=== PATIENT | male | born 1980 | race Caucasian/White ===

== ENCOUNTER 2018-05-14 17:17 | Emergency (ER) | payer MEDICARE, MEDICAID, SELFPAY ==
[2018-05-14] VITALS (24 sets, daily range): BP systolic 103–127; BP diastolic 78–97; PULSE 97–117; RESP 8–32; TEMP 37.7–38.4; O2SAT 93–100
--- NOTE | 2018-05-14 17:35 | DI.REPORT_ITS ---
SYMPTOM/DIAGNOSIS: CHEST PAIN PA AND LATERAL CHEST: The heart is normal in size. The lungs are clear. The mediastinal structures and pleura appear intact. CONCLUSION: Normal chest. No evidence of acute cardiopulmonary disease.
--- NOTE | 2018-05-14 17:41 | ED.GENADUL ---
Disposition Clinical Impression: Fever, Malaise Disposition: AGAINST MEDICAL ADVICE Condition: Fair Instructions: Fever in Adults (ED), Bacteremia (ED) Additional Instructions: It Is clearly not my recommendation that you leave. I think it is very dangerous that you are leaving against our medical advice at this time. Please return immediately if you have any change in opinion, or you notice any worsening of your symptoms. Although this is not ideal medical therapy, please fill the prescription and take the antibiotic as directed. Drink 8-10 cups of water per day. Please also follow up with your primary care provider as soon as possible for reassessment and reevaluation. Prescriptions: Clindamycin [Cleocin] 450 mg PO TID 10 Days cap Referrals: Abhishek Rouse [Primary Care Provider] - Medical Decision Making - Medical Decision Making This is a pleasant 37-year-old male who presents for evaluation of fever, chills, chest pain, who has a history of IV drug use. He is febrile here on exam, and tachycardic. And concern for potential endocarditis, versus sepsis. Differential does include pneumonia, bacteremia, and urinary tract infection. We will rehydrate the patient, evaluate for cardiac and infectious etiologies. The patient was given vancomycin here in the emergency department. Chest x-ray was negative, patient remained mildly tachycardic, blood cultures were sent, unfortunately prior to the patient's completion of treatment and workup the patient decided to leave AGAINST MEDICAL ADVICE. He had a social issue at home stating that if he did not leave right now he would lose his apartment in place to stay. I pleaded with the patient to stay, however he insisted that he had to leave. It was made very clear that there was a fair chance that he would if he did not stay and receive proper treatment. I did give the patient a prescription for clindamycin in an effort to help remedy the poor decision of leaving AGAINST MEDICAL ADVICE, and potentially causing deleterious self-harm. Patient is of a appropriate age to make decisions. The patient is of sound mind, appears clinically sober, and has capacity to make decisions by my clinical exam. We have provided options for treatment and discussed the risks and benefits of these options and refusing these options, including and disability specific to the patient's pathology. Patient is able to discuss the risks and benefits and alternatives of treatment and refusing treatment. We have tried to involve the patient's family or support group that was present here or by contacting them on the phone. The patient chooses to leave before evaluation and treatment is complete AGAINST MEDICAL ADVICE. History of Present Illness - General Chief complaint: GenMedical Stated complaint: CALEX Time Seen by Provider: 05/14/18 17:34 - History of Present Illness Initial comments: This is a 37-year-old male with past medical history of IV drug use, cecal diverticulitis, who presents today for 5 days of sweating, fevers, chills, generalized malaise, and generalized body aches. Patient states that he went to his dentist today for toothache, and after telling him his symptoms they sent him here to the emergency department for evaluation of infection or the heart. The patient admits to mild chest pain, mild nausea, minimal epigastric pain. He denies any recent alcohol use but does state he weekly uses IV drug use. Patient denies any recent cocaine or heroin use,. He denies any previous cardiac history or family history of cardiac disease. He denies any vomiting, diarrhea, headache, vision change, cough, rash. He denies any recent surgeries. He denies any pertinent family history. - Related Data Acetaminophen [Tylenol Extra Strength] 1 tab PO PRN PRN 09/24/13 Pregabalin [Lyrica] 100 mg PO TID 08/09/15 Methadone HCl 70 mg PO DAILY 12/15/15 BuPROPion CR [Wellbutrin Sr] 150 mg PO DAILY 05/14/18 Clindamycin [Cleocin] 450 mg PO TID 10 Days cap 05/14/18 Allergies Allergy/AdvReac Type Severity Reaction Status Date / Time codeine Allergy Intermediate Hives Unverified 05/15/18 16:35 amoxicillin AdvReac Intermediate Nausea Unverified 05/15/18 16:35 Penicillins AdvReac Mild Nausea Unverified 05/15/18 16:35 Review of Systems Other: 10 point review of systems was performed, pertinent positives and negatives are noted in the history of present illness. Past Medical History - Past Medical History headaches, neuropathy, Hep C Surgical history: non-contributory General Exam - Other Other exam information: 1.Const: Well-nourished, Well-developed, appearing stated age 2.Eyes: PERRL, no conjunctival injection, and symmetrical lids. 3.ENT: Atraumatic external nose and ears. Moist MM. Neck: Symmetric, trachea midline, No thyromegaly. 4.CVS: Notable tachycardia +S1/S2, No appreciable murmurs or gallops. Peripheral pulses 2+ and equal in all extremities. Brisk capillary refill in all extremities. 5.RESP: Unlabored respiratory effort. Clear to auscultation bilaterally. No wheezes rales or rhonchi 6.GI: Soft, No hepatosplenomegaly. No guarding or rebound. Minimal epigastric tenderness. 7.MSK: Normocephalic/Atraumatic, Extremities w/o deformity or ttp No cyanosis or clubbing, Normal movement of all extremities. No Osler nodes or Janeway lesions. The patient does demonstrate multiple injection sites around his knees bilaterally. 8.Skin: Warm, Dry. No rashes or lesions. 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 Sensation grossly intact, no focal neurologic deficits. 10.Psych: (AAO) x3. Appropriate mood and affect
[2018-05-14] MEDS: Normal Saline 2,000 ML 1000 ML IV ×2 (17:50→19:36)
[2018-05-14] MEDS: LORazepam 2 MG/ML VIAL 1 MG IVP ×2 (17:56→18:10)
[2018-05-14] MEDS: Acetaminophen 500 MG TAB 1000 MG PO (17:57)
[2018-05-14] MEDS: VANCOMYCIN 1,500 MG in Normal Saline 500 ML 333.3333 MG IVPB (18:33)
[2018-05-14 18:51] LABS: BE (Venous) -1.2 mmol/L (-3-3); HCO3 (Venous) 24 mmol/L (22-28); O2 Sat (Venous) 99 % (70-80); TCO2 (Venous) 21 mmol/L (22-29); pCO2 (Venous) 41 mm/Hg (34-47); pH (Venous) 7.37 (7.32-7.43); pO2 (Venous) 125 mm/Hg (28-44)
[2018-05-14 18:53] LABS: Lactate 1.1 mmol/L (0.6-1.4)
[2018-05-14 18:54] LABS: Abs Immature Grans 0.04 k/cumm (0.0-0.09); Absolute Basophil Count 0.02 k/cumm (0.0-0.2); Absolute Eosinophil Count 0.07 k/cumm (0.0-0.7); Absolute Lymphocyte Count 1.99 k/cumm (1.2-3.4); Absolute Monocyte Count 0.93 k/cumm (0.11-0.7); Absolute Neutrophil Count 5.74 k/cumm (1.2-6.7); Basophils % 0.2; Eosinophils % 0.8; HCT 42.9 % (40.0-50.0); HGB 14.8 g/dL (13.5-17.5); Immature Grans % 0.5; Lymphocytes % 22.6; Mean Corp. HGB Concentration 34.5 g/dL (32.0-36.0); Mean Platelet Volume 9.9 fL (8.0-11.0); Monocytes % 10.6; Neutrophils % 65.3; Platelet Count 259 x1000/uL (130-400); RBC 5.11 m/cumm (4.50-6.00); RBC Distribution Width 13.6 % (11.8-14.1); White Blood Cell Count 8.79 k/cumm (4.4-10.8)
[2018-05-14 19:00] LABS: C-Reactive Protein 0.41 mg/dL (0.0-0.3)
[2018-05-14 19:00] LABS: Bilirubin Small (Negative); Blood Large (Negative); Glucose Negative (Negative); Ketones Trace mg/dL (Negative); Leukocyte Esterase Negative (Negative); Nitrite Negative (Negative); Specific Gravity >= 1.030 (1.005-1.025); Urobilinogen 0.2 EU/dL (Up TO 0.2); pH 5.5 (5-8)
[2018-05-14 19:01] LABS: Clarity Sl Cloudy
[2018-05-14 19:04] LABS: C & S Indicated? C&S Done As Ordered
[2018-05-14 19:11] LABS: ALT 30 U/L (12-78); AST 17 U/L (15-37); Albumin 3.9 g/dL (3.4-5.0); Alkaline Phosphatase 96 U/L (46-116); Anion Gap 9.9 mmol/L (3-11); BUN 18 mg/dL (7-18); Bilirubin, Total 0.5 mg/dL (0.2-1.0); CO2 24.1 mmol/L (21.0-32.0); CREATININE 1.32 mg/dL (0.70-1.30); Calcium 8.6 mg/dL (8.5-10.1); Chloride 104 mmol/L (98-107); Glucose 94 mg/dL (70-100); Lipase 58 U/L (73-393); Potassium 3.5 mmol/L (3.5-5.1); Sodium 138 mmol/L (136-145); TSH 2.45 uIU/mL (0.358-3.74); Total Protein 7.9 g/dL (6.4-8.2)
[2018-05-14 19:16] LABS: Troponin I < 0.02 ng/mL (0.00-0.06)
[2018-05-14 19:17] LABS: *AMPHETAMINES SCREEN URINE POSITIVE (Negative); *BARBITURATES SCREEN URINE Negative (Negative); *BENZODIAZEPINES SCREEN URINE Negative (Negative); Cannabinoids THC POSITIVE (Negative); Cocaine Screen,Urine POSITIVE (Negative); METHADONE URINE SCREEN POSITIVE (Negative); OPIATES URINE SCREEN POSITIVE (Negative)
[2018-05-14 19:18] LABS: Tricyclic Antidepressants Negative (Negative)
[2018-05-14 19:21] LABS: ETHANOL BLOOD < 3.0 mg/dL (<3)
[2018-05-14 19:22] LABS: Diff Comment Diff Reviewed; RBC Morphology Normal
[2018-05-14 19:23] LABS: Bacteria Negative HPF (Negative); Epithelial Cells Negative HPF (Negative); RBC >50 (0-2)
[2018-05-14 19:24] LABS: Crystals Many Calcium Oxalate HPF (Negative); Mucus Heavy (Negative)
[2018-05-14 19:25] LABS: Casts 20-50 Hyaline LPF (Negative)
[2018-05-14 19:27] LABS: ESR 9 MM/HR (0-15)
--- NOTE | 2018-05-14 20:40 | NUR.NOTE ---
Addendum entered by Scarlet Salas 05/14/18 21:12: Pt went into ER bathroom with belongings bag for approx. 10 min. Upon return to room demeanor was noted to be changed- pt was irritable, insistent on leaving, eyes were glossy and squinting. Dr. Richardson was made aware of this sudden change in pt affect and behavior. Original Note: Nursing Note: Pt states he received a phone call that he was kicked out of his house and would like to leave AMA. Pt states he understands that he could be having a life threatening illness and that he will not stay- i'll either get better or I wont, but I have to save my house. Pt did agree to go get a chest x-ray done as ordered but will not stay any longer after that. Pt removed bilat IV's himself and was found with blood all over floor in room. Pressure applied and dressings applied.
--- NOTE | 2018-05-14 21:08 | DI.VRAD_ITS ---
EXAM: XR Chest, 2 Views EXAM DATE/TIME: 05/14/2018 5:37 PM CLINICAL HISTORY: 37 years old, male; Pain and signs and symptoms; Other: Weakness; Chest pain; Type not specified TECHNIQUE: XR of the chest, 2 views. COMPARISON: CR - CHEST 2 VIEWS PA,LAT 2016-09-25 01:43 FINDINGS: Lungs: Mildly hyperaerated lungs consistent with deep inspiratory effort vs reactive airway disease vs mild COPD . Pleural space: Unremarkable. No pleural effusion. No pneumothorax. Heart/Mediastinum: Unremarkable. No cardiomegaly. Bones/joints: Unremarkable for patient's age. IMPRESSION: Mildly hyperaerated lungs consistent with deep inspiratory effort vs reactive airway disease vs mild COPD . Dictated and Authenticated by: Darwin Rosario MD. Ordering:ARGENTINA HORNE MD
== END 2018-05-14 20:50 | disposition left against medical advice (07) ==
PROVIDERS: Emergency Provider Student in an Organized Health Care Education/Training Program; PCP Family Medicine Adult Medicine
DX: R50.9 Fever, unspecified (principal); R53.81 Other malaise; F11.10 Opioid abuse, uncomplicated; Z53.29 Procedure and treatment not carried out because of patient's decision for other reasons
CPT/HCPCS: 71046; 93005; 96361; 96365; 96375; 99285 ×2; J2060; 36415; 80053; 80307; 82805; 83690; 85652; 87040; 87077; 80320; 81003; 81015; 83605; 84443; 84484; 85025; 86140; 87086; 87186; 93010

== ENCOUNTER 2018-05-15 16:22 | Inpatient (IN) | payer MEDICARE, MEDICAID, SELFPAY ==
[2018-05-15] VITALS (18 sets, daily range): BP systolic 125–145; BP diastolic 78–91; PULSE 77–110; RESP 10–26; TEMP 36.9–37.4; O2SAT 96–100
--- NOTE | 2018-05-15 16:50 | ED.GENADUL_ITS ---
Disposition Clinical Impression: Bacteremia, Chills, Cardiac murmur Disposition: [facility] Condition: Stable Medical Decision Making - Medical Decision Making This is a 37-year-old male with past medical history of IV drug abuse who presents after leaving AMA yesterday he presented here yesterday with fever, tachycardic, signs and symptoms concerning for bacteremia. He had no cardiac murmur at that time. He returns today, stating that he promises that he will stay. He continues to demonstrate tachycardia, but he is afebrile at this time. He has a same symptoms of sweats, chills, and general body aches. We will rehydrate, re-dose vancomycin, and admit. Concerning only on exam at this time the patient does have a mild grade 2 systolic murmur auscultated loudest over the left parasternal spaces. I am concerned for bacterial endocarditis and I think he would benefit from an echocardiogram. EKG 17: 7 Rate 103, CO 174, QTc 469, QRS 110, sinus tachycardia, RSR in V1, potential right bundle branch block, and anterior fascicular block. No significant ST elevation, less than 1 mm elevation in V2 but no other elevation. No reciprocal depression. Inverted T-wave in lead III, in V1. Laboratory workup does demonstrate slightly increased white count compared to before. Renal function normal, potassium stable. Cultures from yesterday have not returned at this point. Chest x-ray from yesterday was negative for any infection or pneumonia, urinalysis was negative for any infection, but certainly positive for multiple different drugs. With a new murmur, continued symptoms, I do feel that he needs further evaluation, echocardiogram, and continued IV antibiotics. Of note the patient's urine does look very dark, we will add a CPK as well as a urine myoglobin. I discussed the case with , he agrees with the assessment and plan. I have extensively reviewed the treatment plan with the patient. I have addressed all patient concerns at this time. I have also discussed the plan with the admitting physician and they agree with the current assessment and plan and have agreed to assume responsibility for the patient. All parties demonstrate verbal understanding and agreement with our assessment and plan at this time. Diagnosis bacteremia History of Present Illness - General Chief complaint: GenMedical Stated complaint: UNKNOWN Time Seen by Provider: 05/15/18 16:42 - History of Present Illness Initial comments: Old male with a past medical history of IV drug use, who presents today after leaving yesterday AGAINST MEDICAL ADVICE. Over the past few days he has had fevers, chills and has felt very off. He felt like his heart has been racing. He had some occasional chest pain. He was actually at his dentist office for sore tooth and they recommended he come in here to the ER for evaluation. Yesterday patient was seen as and was assessed and was febrile , notably tachycardic, lactate was not significantly elevated. Laboratory workup demonstrated signs concerning for infection. Chest x-ray was negative, urinalysis was positive for multiple drugs. Patient does readily admit to using drugs on a daily basis, primarily IV with injection sites in the knees. Yesterday the patient had no heart murmur that I could appreciate, and unfortunately became very anxious, and left AGAINST MEDICAL ADVICE. I spent a long time in the room with the patient trying to convince him to stay but was unsuccessful. Doing what was in the best interest of the patient I did give him a prescription for clindamycin and pleaded with him to start taking this if at all possible. He did receive a full dose of vancomycin here in the ED. He still left AGAINST MEDICAL ADVICE. He stated that there was multiple social reasons why he had to leave including potentially losing his apartment. He presents again today with the same symptoms, fever, chills, malaise and body aches. He remains tachycardic. He is currently afebrile today. He has no new complaints. He does admit to doing drugs today, as he does on a normal basis. He denies any pertinent surgeries, any pertinent family history. - Related Data Acetaminophen [Tylenol Extra Strength] 1 tab PO PRN PRN 09/24/13 Pregabalin [Lyrica] 100 mg PO TID 08/09/15 Methadone HCl 70 mg PO DAILY 12/15/15 BuPROPion CR [Wellbutrin Sr] 150 mg PO DAILY 05/14/18 Clindamycin [Cleocin] 450 mg PO TID 10 Days cap 05/14/18 Allergies Allergy/AdvReac Type Severity Reaction Status Date / Time codeine Allergy Intermediate Hives Unverified 05/15/18 16:35 amoxicillin AdvReac Intermediate Nausea Unverified 05/15/18 16:35 Penicillins AdvReac Mild Nausea Unverified 05/15/18 16:35 Review of Systems Other: 10 point review of systems was performed, pertinent positives and negatives are noted in the history of present illness. Past Medical History - Past Medical History headaches, neuropathy, Hep C Surgical history: non-contributory General Exam - Other Other exam information: 1.Const: Well-nourished, Well-developed, appearing stated age 2.Eyes: PERRL, no conjunctival injection, and symmetrical lids. 3.ENT: Atraumatic external nose and ears. Moist MM. Neck: Symmetric, trachea midline, No thyromegaly. 4.CVS: +S1/S2, a grade 2 systolic murmur is appreciable on my exam. This is new compared to before. It is heard loudest over the third left parasternal intercostal space.. Peripheral pulses 2+ and equal in all extremities. Brisk capillary refill in all extremities. 5.RESP: Unlabored respiratory effort. Clear to auscultation bilaterally. No wheezes rales or rhonchi 6.GI: Soft, Nontender/Nondistended, No hepatosplenomegaly. No guarding or rebound. 7.MSK: Normocephalic/Atraumatic, Extremities w/o deformity or ttp No cyanosis or clubbing, Normal movement of all extremities 8.Skin: Warm, Dry. There is a mild heat rash in the groin area. No other abnormalities. 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 Sensation grossly intact, no focal neurologic deficits. 10.Psych: (AAO) x3. Appropriate mood and affect Course Vital Signs - 24 hr 05/15/18 16:31 Temperature 37.4 C Pulse 110 H Respiratory 18 Rate Blood Pressure 131/84 Pulse Oximetry 96
[2018-05-15] MEDS: Normal Saline 1,000 ML 1000 ML IV (17:12)
[2018-05-15] MEDS: Acetaminophen 500 MG TAB 1000 MG PO (17:19)
[2018-05-15] MEDS: diphenhydrAMINE 50 MG/ML VIAL 25 MG IVP (17:20)
[2018-05-15] MEDS: Ketorolac 30 MG/ML VIAL IM (17:22)
[2018-05-15] MEDS: VANCOMYCIN 1,500 MG in Normal Saline 500 ML 333.3333 MG IVPB (17:24)
[2018-05-15 17:31] LABS: Abs Immature Grans 0.02 k/cumm (0.0-0.09); Absolute Basophil Count 0.03 k/cumm (0.0-0.2); Absolute Eosinophil Count 0.08 k/cumm (0.0-0.7); Absolute Lymphocyte Count 1.61 k/cumm (1.2-3.4); Absolute Monocyte Count 1.22 k/cumm (0.11-0.7); Absolute Neutrophil Count 8.22 k/cumm (1.2-6.7); Basophils % 0.3; Eosinophils % 0.7; HGB 14.1 g/dL (13.5-17.5); Immature Grans % 0.2; Lymphocytes % 14.4; Mean Corp. HGB Concentration 35.3 g/dL (32.0-36.0); Mean Corpuscular Hemoglobin 29.4 pg (27.0-33.0); Mean Corpuscular Volume 83.3 fL (80-95); Mean Platelet Volume 9.8 fL (8.0-11.0); Monocytes % 10.9; Neutrophils % 73.5; Platelet Count 255 x1000/uL (130-400); RBC Distribution Width 13.7 % (11.8-14.1); White Blood Cell Count 11.19 k/cumm (4.4-10.8)
[2018-05-15 17:34] LABS: ALT 26 U/L (12-78); AST 20 U/L (15-37); Albumin 3.8 g/dL (3.4-5.0); Alkaline Phosphatase 90 U/L (46-116); Anion Gap 12.5 mmol/L (3-11); BUN 17 mg/dL (7-18); Bilirubin, Total 1.1 mg/dL (0.2-1.0); CO2 23.5 mmol/L (21.0-32.0); CREATININE 1.08 mg/dL (0.70-1.30); Calcium 8.6 mg/dL (8.5-10.1); Chloride 106 mmol/L (98-107); Glucose 98 mg/dL (70-100); Lipase 47 U/L (73-393); Potassium 3.4 mmol/L (3.5-5.1); Sodium 142 mmol/L (136-145); TSH 1.87 uIU/mL (0.358-3.74); Total Protein 7.8 g/dL (6.4-8.2)
[2018-05-15 17:43] LABS: Troponin I < 0.02 ng/mL (0.00-0.06)
[2018-05-15 18:36] LABS: Bilirubin Small (Negative); Blood Large (Negative); Clarity Cloudy; Glucose Negative (Negative); Ketones Trace mg/dL (Negative); Leukocyte Esterase Negative (Negative); Nitrite Negative (Negative); Specific Gravity >= 1.030 (1.005-1.025); Urobilinogen 0.2 EU/dL (Up TO 0.2); pH 5.5 (5-8)
[2018-05-15 18:39] LABS: RBC >50 (0-2)
[2018-05-15 18:40] LABS: C & S Indicated? Yes; Mucus Moderate (Negative)
[2018-05-15 18:55] LABS: Creatine Kinase 167 U/L (39-308)
--- NOTE | 2018-05-15 21:15 | PDOC.CMPRO ---
Care Management Progress Note 05/15/18- Pt seen for bacteremia and Cardiac murmur by Dr. Mendez. Pt has been admitted to [facility] . Pt is seen by Dr. Abhishek Rouse at [facility] .
[2018-05-15] MEDS: Potassium Chloride 10 MEQ TABCR 20 MEQ PO (21:44)
--- NOTE | 2018-05-15 22:02 | PDOC.HP ---
Date of Service: 05/15/18 Time of Service: 22:02 Assessment/Plan - Assessment/Plan (1) Acute febrile illness Assessment: There is no obvious source for his fevers such as a dental abscess or sinusitis or bronchitis or UTI. Given his history of IV drug abuse and has to be presumed that he has bacteremia and probable subacute endocarditis Plan: Patient will need further blood cultures although given these had a couple dose of vancomycin may be unrevealing as his repeat blood cultures may come back no growth. Patient needs an echocardiogram. (2) Proteinuria Plan: It appears that historically the patient has passed protein in his urine in the past dating as far back as 2005. He reportedly has a history of chronic renal insufficiency. 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 I suspect that this is from a glomerular injury from his hepatitis C infection Plan: Would be helpful to get records from his PCP to see if he has been worked up for glomerulonephritis in the past. It appears historically dating back to 2005 he seems to pass small moderate to large amounts of blood on his urinalysis whenever this is been checked. He has had 2 instances in the past in which his urinalysis was negative for blood that was in November 2014 and February 2006. (4) History of intravenous drug abuse Assessment: Patient is currently enrolled in the methadone program through [facility]. However according to his urine drug screen from yesterday he still using polysubstances including opiates amphetamines cocaine and THC and cocaine. Plan: We will confirm with [facility] his methadone dose and represcribed this in the morning. However explained to the patient that he will not receive any other narcotic analgesics nor any benzodiazepines while hospitalized. He is requesting something to help him sleep and I offered melatonin or Benadryl or Vistaril and he declines all the above. He states he wants something stronger to help him sleep. I told him I will not be offering anything stronger. History of Present Illness - History of Present Illness Chief Complaint: Fevers, chills rule out endocarditis History of Present Illness: 37-year-old male with history of IV drug abuse currently in narcotic treatment program at [facility] in [facility] who presents to the ER at [facility] due to one week history of fevers, chills, insomnia and night sweats. Patient was seen in the ER yesterday by Dr. Fabrice Richardson, emergency dry room attendant, and had routine labs and blood cultures taken. Dr. Richardson treated him w/ iv vancomycin and implored the patient to stay however, the patient left the ER against medical advice due to reported social issues at home that he had to attend to. So far blood cultures from yesterday's ER visit have been negative. The patient returned to the ER today and Dr. Richardson saw him again and repeated some of his labs although did not repeat the blood cultures. Repeat labs included CMP, CBC, VBG, ESR, CRP, CK, UA, urine drug screen and blood alcohol level. His CBC which yesterday was normal now shows a leukocytosis of 11,000. CMP is fairly unremarkable except for mild hypokalemia 3.4 and a borderline elevated anion gap of 12.5 and elevated total bilirubin of 1.1. His troponin level is negative. Labs from yesterday showed elevated CRP of 0.41 but a normal ESR of 9. Urinalysis is remarkable for brown cloudy urine with 100 mg/dL protein trace of ketones and large amount of blood with greater than 50 red cells per high-powered field but negative for nitrites or leukocyte esterase. Yesterday's urinalysis also had many calcium oxalate crystals and 20-50 hyaline casts. No bacteria was seen in his urine. Chest x-ray from yesterday was read as a normal chest. He was treated in the emergency room with another dose of vancomycin 1500 mg. Patient is now admitted to the hospital for workup of possible subacute bacterial endocarditis. - Past Medical History CLINICAL AIDE: Migraine Gastrointestinal: Diverticulosis Hepatobiliary: Hep A/B/C (HCV (hepatitis C antibody reactive November 23, 2013 but HCV RNA quantitative by PCR was undetected as of December 31, 2013). HIV 1 and 2 rapid antibody was negative November 23, 2013) Psych: Addictions (History of opiate addiction currently on methadone treatment through outpatient drug addiction program at [facility]), Other (History of polysubstance abuse with drug overdose in 2013 and again in September 2016. Mood disorder not otherwise specified) Renal/: Chronic renal insuff Review of Systems - Review of Systems Constitutional: Fever, Sweats ENT: denies: Ear Pain, Nose Pain, Nose Discharge, Nose Congestion, Throat Pain Respiratory: denies: Cough, Shortness of Breath, SOB with Excertion Cardiovascular: denies: Chest Pain Gastrointestinal: Abdominal Pain (Mild epigastric discomfort). denies: Nausea, Vomiting Genitourinary: Other (Patient reports he is urinating dark brown to black urine) Musculoskeletal: denies: Arm Pain, Leg Pain Skin: denies: Rash, Other (Patient denies any open sores. He usually injects his cocaine into his legs) Neurological: Other (Insomnia) - Medications/Allergies Allergies/Adverse Reactions: Allergies Allergy/AdvReac Type Severity Reaction Status Date / Time codeine Allergy Intermediate Hives Unverified 05/15/18 16:35 amoxicillin AdvReac Intermediate Nausea Unverified 05/15/18 16:35 Penicillins AdvReac Mild Nausea Unverified 05/15/18 16:35 Medications: Current Medications Acetaminophen (Tylenol) 0 mg PO Q4H PRN PRN Al Hydrox/Mg Hydrox/Simethicone (Mylanta Liquid) 30 ml PO Q2H PRN PRN Bupropion HCl (Wellbutrin Sr) 150 mg PO DAILY YARY Dimethicone/Zinc Oxide (Stephen Protect Cream) 0 gm TP PRN PRN Docusate Sodium (Colace) 100 mg PO TID PRN PRN Vancomycin HCl 1,500 mg/ (Sodium Chloride) 250 mls @ 250 mls/hr IV Q12H YARY PRN Reason: Protocol Magnesium Hydroxide (Milk Of Magnesia) 30 ml PO DAILY PRN PRN Polyethylene Glycol (Miralax) 17 gm PO DAILY PRN PRN PRN Reason: Constipation Active Medications Generic Name Dose Route Start Last Admin Trade Name Freq PRN Reason Stop Dose Admin Acetaminophen 0 mg 05/15/18 19:33 Tylenol PO Q4H PRN PRN Al Hydrox/Mg Hydrox/Simethicone 30 ml 05/15/18 19:33 Mylanta Liquid PO Q2H PRN PRN Bupropion HCl 150 mg 05/16/18 08:30 Wellbutrin Sr PO DAILY YARY Dimethicone/Zinc Oxide 0 gm 05/15/18 19:33 Stephen Protect Cream TP PRN PRN Docusate Sodium 100 mg 05/15/18 19:33 Colace PO TID PRN PRN Vancomycin HCl 1,500 mg/ 250 mls @ 250 mls/hr 05/16/18 06:00 Sodium Chloride IV Q12H YARY Protocol Magnesium Hydroxide 30 ml 05/15/18 19:33 Milk Of Magnesia PO DAILY PRN PRN Polyethylene Glycol 17 gm 05/15/18 19:33 Miralax PO DAILY PRN PRN Constipation Acetaminophen [Tylenol Extra Strength] 1 tab PO PRN PRN 09/24/13 Pregabalin [Lyrica] 100 mg PO TID 08/09/15 Methadone HCl 70 mg PO DAILY 12/15/15 BuPROPion CR [Wellbutrin Sr] 150 mg PO DAILY 05/14/18 Clindamycin [Cleocin] 450 mg PO TID 10 Days cap 05/14/18 Objective - Exam Vitals and I&O: Vital Signs Temp 36.9 C 05/15/18 20:03 Pulse 106 H 05/15/18 20:03 Resp 18 05/15/18 20:03 BP 141/87 05/15/18 20:03 Pulse Ox 98 05/15/18 20:03 Intake & Output 05/14/18 05/15/18 05/15/18 23:59 11:59 23:59 Intake Total 1000 Balance 1000 Weight 88.451 kg Intake: IV 1000 General: Alert, Oriented x3, Other (Patient was confrontational about his drug abuse) HEENT: Atraumatic, PERRLA, EOMI, Mucous membr. moist/pink, Other (Teeth are in fair repair there is no swelling of his gingiva and no purulent drainage. No oropharyngeal exudate) Neck: Supple, +2 carotid pulse wo bruit. denies: JVD, Thyromegaly, LAD Lungs: Clear to auscultation, Normal air movement Cardiovascular: Regular rate, Normal S1, Normal S2. denies: Murmurs, Gallops, Rubs Abdomen: Normal bowel sounds, Soft. denies: Tenderness, Hepatospenomegaly, Masses Extremities: Normal pulses. denies: Cyanosis, Edema, Tenderness/swelling Skin: Significant lesion (Patient has a number healed pinpoint discolored bruises over his legs consistent with sites of previous injections. There is no open sores and no ulcerations of the skin. Examination of his nailbeds of his fingers and toes reveals no splinter hemorrhages. He has no Osler nodes of his hands) Neurological: Normal gait, Normal speech, Strength at 5/5 X4 ext, Normal tone, Sensation intact Psych/Mental Status: Mental status NL, Mood NL Results - Laboratory Data Result Diagrams: 05/15/18 16:58 05/15/18 16:58 Laboratory Results: Laboratory Tests 05/15/18 05/15/18 05/15/18 16:58 16:58 16:58 WBC 11.19 H RBC 4.80 Hgb 14.1 Hct 40.0 MCV 83.3 MCH 29.4 MCHC 35.3 RDW 13.7 Plt Count 255 MPV 9.8 Immature Gran % 0.2 Neutrophils % 73.5 Lymphocytes % 14.4 Monocytes % 10.9 Eosinophils % 0.7 Basophils % 0.3 Absolute Neutrophils 8.22 H Absolute Lymphocytes 1.61 Absolute Monocytes 1.22 H Absolute Eosinophils 0.08 Absolute Basophils 0.03 Sodium 142 Potassium 3.4 L Chloride 106 Carbon Dioxide 23.5 Anion Gap 12.5 H BUN 17 Creatinine 1.08 Estimated GFR/1.73 m2 >= 60.00 Glucose 98 Calcium 8.6 Total Bilirubin 1.1 H AST 20 ALT 26 Alkaline Phosphatase 90 Creatine Kinase 167 Troponin I < 0.02 Total Protein 7.8 Albumin 3.8 Lipase 47 L TSH 1.87 Urine Color Urine Clarity Urine pH Ur Specific [place] Urine Protein Urine Ketones Urine Blood Urine Nitrite Urine Bilirubin Urine Urobilinogen Ur Leukocyte Esterase Urine RBC Urine WBC Ur Epithelial Cells Urine Crystals Urine Bacteria Urine Mucus Ur Culture Indicated? Urine Glucose 05/15/18 18:20 WBC RBC Hgb Hct MCV MCH MCHC RDW Plt Count MPV Immature Gran % Neutrophils % Lymphocytes % Monocytes % Eosinophils % Basophils % Absolute Neutrophils Absolute Lymphocytes Absolute Monocytes Absolute Eosinophils Absolute Basophils Sodium Potassium Chloride Carbon Dioxide Anion Gap BUN Creatinine Estimated GFR/1.73 m2 Glucose Calcium Total Bilirubin AST ALT Alkaline Phosphatase Creatine Kinase Troponin I Total Protein Albumin Lipase TSH Urine Color Brown Urine Clarity Cloudy Urine pH 5.5 Ur Specific [place] >= 1.030 H Urine Protein 100 H Urine Ketones Trace H Urine Blood Large H Urine Nitrite Negative Urine Bilirubin Small H Urine Urobilinogen 0.2 Ur Leukocyte Esterase Negative Urine RBC >50 H Urine WBC Not Applicable Ur Epithelial Cells Not Applicable Urine Crystals Not Applicable Urine Bacteria Not Applicable Urine Mucus Moderate Ur Culture Indicated? Yes Urine Glucose Negative
[2018-05-15] MEDS: Acetaminophen 325 MG TAB PO (23:50)
[2018-05-15] MEDS: diphenhydrAMINE 25 MG CAP 50 MG PO (23:51)
[2018-05-16] MEDS: Normal Saline Flush 10 ML SYR ×2 (06:03→08:23)
[2018-05-16] MEDS: VANCOMYCIN 1,500 MG in Normal Saline 250 ML 250 MG IV (06:03)
[2018-05-16 07:19] LABS: Abs Immature Grans 0.01 k/cumm (0.0-0.09); Absolute Basophil Count 0.04 k/cumm (0.0-0.2); Absolute Eosinophil Count 0.21 k/cumm (0.0-0.7); Absolute Lymphocyte Count 1.29 k/cumm (1.2-3.4); Absolute Monocyte Count 0.89 k/cumm (0.11-0.7); Absolute Neutrophil Count 3.21 k/cumm (1.2-6.7); Basophils % 0.7; Eosinophils % 3.7; HCT 38.1 % (40.0-50.0); Immature Grans % 0.2; Lymphocytes % 22.8; Mean Corp. HGB Concentration 34.1 g/dL (32.0-36.0); Mean Platelet Volume 9.5 fL (8.0-11.0); Monocytes % 15.8; Neutrophils % 56.8; Platelet Count 211 x1000/uL (130-400); RBC 4.48 m/cumm (4.50-6.00); RBC Distribution Width 13.4 % (11.8-14.1); White Blood Cell Count 5.65 k/cumm (4.4-10.8)
--- NOTE | 2018-05-16 07:30 | MERGE_ITS ---
*[facility]* *[facility]* [address] [place] [address] Date of study: 05/16/2018 Transthoracic Echocardiography M-mode, complete 2D, complete spectral Doppler, and color Doppler *STUDY CONCLUSIONS* Impressions: No evidence of endocarditis, however, sensitivity for this finding on TTE is <50%. Summary: 1. Left ventricle: The cavity size was normal. Wall thickness was normal. Systolic function was normal. The estimated ejection fraction was 55-60%. Wall motion was normal; there were no regional wall motion abnormalities. 2. Mitral valve: There was mild regurgitation. 3. Right ventricle: The cavity size was normal. Wall thickness was normal. Systolic function was normal. *PATIENT PRESENTATION* Height: 177.8cm ((70in) ) S/D Pressure: 145 / 91 Weight: 192kg ((422.4lb) ) BSA: 3.2m^2 PERFORMING Unknown PERFORMING [facility] ORDERING Xavi Winn REFERRING Xavi Winn TUTOR COORDINATOR Sharita Strickland *PROCEDURE DATA* Procedure information: This study was interpreted by [facility]. Pertinent images and digital data are archived for permanent storage and are available for subsequent review. No prior study was available for comparison. Study status: Routine. Transthoracic echocardiography. M-mode, complete 2D, complete spectral Doppler, and color Doppler. A Transthoracic Echocardiogram was performed. Scanning was performed from the parasternal, apical, subcostal, and suprasternal notch acoustic windows. Images were obtained using an [employer] 2000 cardiac ultrasound machine. Image quality was fair. Study completion: The patient tolerated the procedure well. History: PMH: Acute febrile illness, history of iv drug abuse. *CARDIAC ANATOMY* Left ventricle: The cavity size was normal. Wall thickness was normal. Systolic function was normal. The estimated ejection fraction was 55-60%. Wall motion was normal; there were no regional wall motion abnormalities. Diastolic parameters were normal. Aortic valve: Trileaflet; normal thickness leaflets. Mobility was not restricted. Doppler: Transvalvular velocity was within the normal range. There was no stenosis. There was no significant regurgitation. VTI ratio of LVOT to aortic valve: 0.85. Valve area (VTI): 2.7cm^2. Indexed valve area (VTI): 0.8cm^2/m^2. Peak velocity ratio of LVOT to aortic valve: 0.8. Valve area (Vmax): 2.5cm^2. Indexed valve area (Vmax): 0.8cm^2/m^2. Mean velocity ratio of LVOT to aortic valve: 0.71. Valve area (Vmean): 2.2cm^2. Indexed valve area (Vmean): 0.7cm^2/m^2. Mean gradient (S): 3.4mm Hg. Peak gradient (S): 5.7mm Hg. Aorta: Aortic root: The aortic root was normal in size. Mitral valve: Structurally normal valve. Mobility was not restricted. Doppler: Transvalvular velocity was within the normal range. There was no evidence for stenosis. There was mild regurgitation. Valve area by pressure half-time: 3.5cm^2. Indexed valve area by pressure half-time: 1.1cm^2/m^2. Peak gradient (D): 2.3mm Hg. Left atrium: The atrium was at the upper limits of normal in size. Right ventricle: The cavity size was normal. Wall thickness was normal. Systolic function was normal. Pulmonic valve: Poorly visualized. Doppler: Transvalvular velocity was within the normal range. There was no evidence for stenosis. There was mild regurgitation. Tricuspid valve: Structurally normal valve. Doppler: Transvalvular velocity was within the normal range. There was no evidence for stenosis. There was trivial regurgitation. Pulmonary artery: Poorly visualized. Pulmonary systolic pressure was within the normal range. Right atrium: The atrium was normal in size. Pericardium: There was no pericardial effusion. Systemic veins: Inferior vena cava: The vessel was normal in size. The respirophasic diameter changes were in the normal range (greater than or equal to 50%), consistent with normal central venous pressure. Measurements Left ventricle Value Reference LV ID, ED, PLAX 5.0 cm 3.5 - 6.0 LV ID, ES, PLAX 3.4 cm 2.1 - 4.0 LV PW thickness, ED, PLAX 0.9 cm LV end-diastolic volume, 1-p A2C 102 ml LV ejection fraction, 1-p A2C 58 % LV end-diastolic volume, 1-p A4C 109 ml LV ejection fraction, 1-p A4C 60 % LV e', lateral 0.124 m/sec LV E/e', lateral 6 LV e', medial 0.085 m/sec LV E/e', medial 9 LV e', average 0.104 m/sec LV E/e', average 7 Ventricular septum Value Reference IVS thickness, ED, PLAX 0.8 cm LVOT Value Reference LVOT ID, A-P 2.0 cm LVOT area 3.2 cm^2 LVOT peak velocity, S 0.95 m/sec LVOT mean velocity, S 0.62 m/sec LVOT VTI, S 23.7 cm LVOT peak gradient, S 3.6 mm Hg LVOT mean gradient, S 1.8 mm Hg Stroke volume (SV), LVOT DP 75 ml Stroke index (SV/bsa), LVOT DP 23 ml/m^2 Aortic valve Value Reference Aortic valve peak velocity, S 1.2 m/sec Aortic valve mean velocity, S 0.88 m/sec Aortic valve VTI, S 27.8 cm Aortic mean gradient, S 3.4 mm Hg Aortic peak gradient, S 5.7 mm Hg VTI ratio, LVOT/AV 0.85 Aortic valve area, VTI 2.7 cm^2 Velocity ratio, peak, LVOT/AV 0.8 Aortic valve area, peak velocity 2.5 cm^2 Velocity ratio, mean, LVOT/AV 0.71 Aortic valve area, mean velocity 2.2 cm^2 Aortic valve area/bsa, mean velocity 0.7 cm^2/m^2 Aorta Value Reference Aortic root ID, ED 3.1 cm Ascending aorta ID, A-P, S 2.8 cm Aortic root ID, ED, MM 3.1 cm 2.0 - 3.7 Left atrium Value Reference LA ID, A-P, ES 3.8 cm LA ID/bsa, A-P 1.2 cm/m^2 <=2.2 LA area, ES, A4C 22.1 cm^2 8.8 - 23.4 LA area, ES, A2C 22 cm^2 LA volume/bsa, S 25 ml/m^2 LA volume, ES, 2-p 67 ml LA volume/bsa, ES, 2-p 21 ml/m^2 LA/aortic root ratio 1.23 Mitral valve Value Reference Mitral E-wave peak velocity 0.75 m/sec Mitral A-wave peak velocity 0.57 m/sec Mitral deceleration time 220 ms 150 - 230 Mitral pressure half-time 64 ms Mitral peak gradient, D 2.3 mm Hg Mitral E/A ratio, peak 1.32 Mitral valve area, PHT, DP 3.5 cm^2 Tricuspid valve Value Reference Tricuspid regurg peak velocity 2.4 m/sec Tricuspid peak RV-RA gradient 23 mm Hg Right atrium Value Reference RA area, ES, A4C 18.6 cm^2 8.3 - 19.5 RA volume, ES, A/L 54 ml RA volume/bsa, ES, A/L 17 ml/m^2 Legend: (L) and (H) danie values outside specified reference range. I have personally reviewed the images and have reviewed and edited the reported findings. Electronically signed by Janae Garcia 05/16/2018 11:18
[2018-05-16 07:47] LABS: Anion Gap 8.1 mmol/L (3-11); BUN 13 mg/dL (7-18); CO2 24.9 mmol/L (21.0-32.0); CREATININE 0.93 mg/dL (0.70-1.30); Chloride 108 mmol/L (98-107); Glucose 107 mg/dL (70-100); Magnesium 2.1 mg/dL (1.8-2.4); Sodium 141 mmol/L (136-145)
[2018-05-16 07:57] LABS: C-Reactive Protein 5.68 mg/dL (0.0-0.3)
--- NOTE | 2018-05-16 08:06 | NUR.NOTE ---
Nursing Note: 0806: called [facility] to confirm pt's dosing of methadone. per TASHA Henry, pt takes 70mg PO methadone daily. last dose was 05/15/18.
[2018-05-16 08:22] LABS: ESR 13 MM/HR (0-15)
[2018-05-16] MEDS: buPROPion-CR 150 MG TABCR PO (08:23)
[2018-05-16 09:15] VITALS: BP 100/65; PULSE 65; RESP 18; TEMP 36.1; O2SAT 96
--- NOTE | 2018-05-16 09:44 | NUR.NOTE ---
Nursing Note: 0944: called [facility] pharmacy to verify pt's Lyrica dosing. Trae in pharmacy verifies that pt picked up a 30 day dose on 05/01/18 and is prescribed 100mg BID.
[2018-05-16] MEDS: Methadone Liquid 10 MG/ML 70 MG PO (09:57)
--- NOTE | 2018-05-16 11:22 | PHARADMIT ---
Addendum entered by Maritza Pizano 05/20/18 14:12: Pharmacy Note Subjective CIRA scheduled for tomorrow Objective BP-96/61 other VS okay labs okay Assessment waiting for results of CIRA to determine length of antibiotic treatment Plan vanco trough scheduled for tomorrow @ 0500, adjust dose if necessary Original Note: Addendum entered by Maritza Pizano 05/19/18 14:40: Pharmacy Note Subjective plan was to do a CIRA today per morning report Objective VS-okay labs okay SCr-0.80 Assessment vanco trough came back high at 20.7, adjusted dose to 1000 mg Q10H to target a trough of 11.4 since previous troughs came back over 5 points higher than predicted Plan order vanco trough if vanco continues Original Note: Addendum entered by Christiano Reza III 05/18/18 10:35: Pharmacy Note Subjective MD waiting for culture results to better manage IV ABX treatment. Objective VS-OK Labs ok SCr- 1.02 Plts- 288 No BM yet (no BM meds given, nurse notified. Assessment Vancomycin continues. Next trough ordered for 05/19 @0900 Lovenox 40mg started yesterday Plan Watch for Vanco trough, clture resuls, and cardiology consult Original Note: Addendum entered by Christiano Reza III 05/17/18 15:01: Pharmacy Note Subjective Endocarditis has not been ruled out and MD will proceed to treat. Vancomycin trough came back high (25.5) dose adjustment by [facility] consult ordered Objective VS-OK Na-142 K+4.1 WBC-4.38 SCr0.87 H&H,Plts-OK No BM yet Assessment Vancomcyin chanaged to 1250mg IV q8hr with next dose beginning 05/17/18 @ 1800. Plan If cultures come back Ramila LONGORIA wants to treat for 6 weeks. Original Note: Admission Pharmacy Clinical Review ACUTE FEBRILE ILLNESS, R/O ENDOCARDITIS Code Status Full Code Current Weight Wgt- 87.5 kg Renally Cleared and Narrow Therapeutic Index Meds CrCl~ 113 mL/min Meds-OK QTc Value / Action Taken QTc-469 Na BP Control, Fever BP- 100/65 Tmax- 37.0C Electrolytes reviewed Na- 141 K+4.0 Mag-2.1 DVT Prophylaxis No Opiate Usage / Scheduled Bowel Regimen Ordered Yes Yes Plt/SCr for Heparin / Enoxaparin Plts- 211 SCr-0.93 INR for Warfarin na H/H stable, WBC/Bands H&H- 13.0/38.1 WBC- 5.65 Antibiotic appropriateness Vancomycin Cultures and Sensitivities Blood-Urine- Pending Surgical ABX d/c within 24 hr na DM control / Insulin Dosing BG-107 Heart Failure (Check EF%) (YUNG's, B-Block, Diuretics) none IV to PO Switch No Home Meds Reviewed Yes Home Meds Not Ordered Lyrica, Clindamycin Comments On Methadone Liquid
[2018-05-16] MEDS: Acetaminophen 325 MG TAB PO (12:05)
[2018-05-16] MEDS: Mylanta Suspension 30 ML CUP PO (12:10)
--- NOTE | 2018-05-16 14:32 | PDOC.CMPRO ---
Date of Service: 05/16/18 Time of Service: 14:32 Care Management Progress Note S/O: Pt presented at interdisciplinary rounds. Willy is lying in his bed on the MS floor when CM visited this morning. He is engaged in conversation and makes good eye contact. He has a very flat affect however is talkative. He is awaiting his medication administration and reports that he is feeling ok at present but knows that if he doesn't get his methadone soon that he will feel awful. He continues to receive IV antibiotics. Willy reported that he will need transportation upon discharge and has used [facility] in the past. CM will arrange transport at time of discharge. A: Willy is a 37 year old male admitted with acute febrile illness related to endocarditis. P: Willy will be discharged home when medically ready per MD. He will transport via [facility] and follow up with his primary care provider. CM will continue to provide support to patient and careteam regarding discharge planning and disposition.
[2018-05-16] MEDS: VANCOMYCIN 1,500 MG in Normal Saline 250 ML 166.667 MG IV ×2 (14:56→21:58)
[2018-05-16] MEDS: Normal Saline Flush 10 ML SYR IVP ×2 (14:57→22:00)
[2018-05-16 15:55] VITALS: BP 110/72; PULSE 64; RESP 18; TEMP 35.8; O2SAT 97
--- NOTE | 2018-05-16 17:12 | PGE_ITS ---
DATE OF SERVICE: May 16, 2018 ASSESSMENT/PLAN: 1) Acute febrile illness. Evidence of fevers for approximately 1 week with a his tory of IV drug abuse, with obvious concern for potential infective endocarditis. The patient also has bacteremia with gram positive cocci. Echocardiogram obtained, and on a transthoracic echo, there is no evidence of endocarditis, however sensitivity for this finding on transthoracic echo is noted to be rather low. Left ventricular ejection fraction is normal, with a mitral valve that showed mild regurgitation only. 2) Continue Vancomycin and continue monitoring blood cultures for speciation and sensitivities. When ultimate antibiotic selection is made, will discuss with ID over length of time of treatment, whethe r the patient should be treated for a prolonged period for presumed infective endocarditis. 3) HCV. Noted history of Hepatitis C. 4) History of IV drug abuse. Currently under Methadone program through [facility]. Continue home Methado ne, dose confirmed. However, unfortunately urine drug screen from the day prior to admission also s hows evidence of amphetamines, cocaine and Tetrahydrocannabinol as well as his Methadone. The patie nt also has opiates on his urine drug screen. 5) Will continue his Methadone as previously stated and monitor symptomatically. 6) Prophylaxis. Lovenox subcutaneous for deep vein thrombosis prophylaxis. SUBJECTIVE: 37-year-old male with a past medical history significant for IV drug abuse, currently o n a narcotic program at [facility] in [facility], admitted from [facility] Emergency Department on 05/15/2018 with a 1-week history of fevers and chills with evidence of bacterem ia from blood cultures from the of this month. The patient was initially seen in the Emergency Department on May 14, and due to the high suspici on for potential infectious endocarditis, recommendations were made for him to stay. However, the mookie wilmer left the Emergency Room against medical advice with reported social issues at home that he had to attend to. He then returned to the Emergency Room on the day of admission and was seen again an d, at that time, agreed to hospitalization. By that point, his blood cultures from the day prior we re positive for gram positive cocci. The patient was referred for admission for further evaluation and treatment. This morning, Mr. Watson reports feeling improved overall. He has remained afebrile while hospitali zed. No overnight events were reported. PHYSICAL EXAMINATION: In general, the patient appears comfortable, lying in bed, no acute distress noted. General - vital signs - temperature 36.1 and afebrile, blood pressure 100/65, heart rate 65, pulse ox imetry 96% on room air. Neck - supple. Cardiovascular - regular, nontachycardic. No significant murmur on prolonged cardiac auscultation. Pulmonary - clear to auscultation bilaterally without crackles, rhonchi or wheezing. Abdomen - bowel sounds appreciated, soft, nontender, nondistended. Vascular - no lower extremity edema noted. LABORATORY DATA: Basic metabolic panel essentially normal with the exception of mildly elevated chl oride of 108 and a mildly elevated glucose of 107. Initial liver function tests were checked and normal. C-reactive protein markedly elevated at 5.68. TSH was checked and normal. CBC with normalization of white blood count on antibiotic therapy, HGB of 13, platelet count is miracle l. Urinalysis with 100+ protein, trace ketones, large blood, negative for nitrites and leukocyte esteras e. Greater than 50 red blood cells noted. Blood cultures from 05/14/2018 showing growth of gram positive cocci in two sets of bottles, but no maureen wth in a 3rd set. STUDIES: CXR dated 05/14/2018 on initial Emergency Department visit with no evidence of acute cardiop ulmonary disease.
[2018-05-16] MEDS: Normal Saline 500 ML 30 ML IV (20:00)
[2018-05-16] MEDS: Pregabalin 100 MG CAP PO (21:11)
[2018-05-17 00:04] VITALS: BP 124/79; PULSE 71; RESP 18; TEMP 36.4; O2SAT 98
[2018-05-17] MEDS: VANCOMYCIN 1,500 MG in Normal Saline 250 ML 166.667 MG IV (06:44)
[2018-05-17 07:10] LABS: Abs Immature Grans 0.01 k/cumm (0.0-0.09); Absolute Basophil Count 0.03 k/cumm (0.0-0.2); Absolute Eosinophil Count 0.33 k/cumm (0.0-0.7); Absolute Lymphocyte Count 1.63 k/cumm (1.2-3.4); Absolute Monocyte Count 0.63 k/cumm (0.11-0.7); Absolute Neutrophil Count 1.75 k/cumm (1.2-6.7); Basophils % 0.7; Eosinophils % 7.5; HCT 39.6 % (40.0-50.0); HGB 13.6 g/dL (13.5-17.5); Immature Grans % 0.2; Lymphocytes % 37.2; Mean Corp. HGB Concentration 34.3 g/dL (32.0-36.0); Mean Corpuscular Hemoglobin 29.2 pg (27.0-33.0); Mean Platelet Volume 9.9 fL (8.0-11.0); Monocytes % 14.4; Platelet Count 235 x1000/uL (130-400); RBC 4.66 m/cumm (4.50-6.00); RBC Distribution Width 13.5 % (11.8-14.1); White Blood Cell Count 4.38 k/cumm (4.4-10.8)
[2018-05-17 07:25] LABS: ALT 22 U/L (12-78); AST 14 U/L (15-37); Albumin 3.1 g/dL (3.4-5.0); Alkaline Phosphatase 78 U/L (46-116); BUN 12 mg/dL (7-18); Bilirubin, Total 0.4 mg/dL (0.2-1.0); CREATININE 0.87 mg/dL (0.70-1.30); Calcium 8.5 mg/dL (8.5-10.1); Chloride 106 mmol/L (98-107); Glucose 108 mg/dL (70-100); Potassium 4.1 mmol/L (3.5-5.1); Sodium 142 mmol/L (136-145); Total Protein 6.8 g/dL (6.4-8.2)
[2018-05-17 07:45] VITALS: BP 122/76; PULSE 75; RESP 18; TEMP 36.3; O2SAT 98
[2018-05-17] MEDS: buPROPion-CR 150 MG TABCR PO (08:48)
[2018-05-17] MEDS: Methadone Liquid 10 MG/ML 70 MG PO (08:48)
[2018-05-17] MEDS: Pregabalin 100 MG CAP PO ×2 (08:48→22:11)
[2018-05-17] MEDS: Enoxaparin 40 MG/0.4 ML SYR SC (08:50)
[2018-05-17] MEDS: Mylanta Suspension 30 ML CUP PO (09:01)
[2018-05-17] MEDS: Acetaminophen 325 MG TAB PO (09:02)
[2018-05-17 13:45] LABS: Vancomycin, Trough 25.5 ug/mL (10.0-20.0)
[2018-05-17 15:37] LABS: Myoglobin, U 27 mcg/L (<=21)
[2018-05-17] MEDS: Normal Saline 500 ML 30 ML IV (18:09)
[2018-05-17] MEDS: VANCOMYCIN 1,250 MG in Normal Saline 250 ML 166.667 MG IVPB (18:10)
[2018-05-17 19:16] VITALS: BP 124/77; PULSE 58; RESP 19; TEMP 36.6; O2SAT 97
[2018-05-18] MEDS: VANCOMYCIN 1,250 MG in Normal Saline 250 ML 166.667 MG IVPB ×3 (01:58→18:11)
[2018-05-18 02:45] VITALS: BP 93/54; PULSE 58; RESP 18; TEMP 36.4; O2SAT 98
[2018-05-18 07:37] LABS: Abs Immature Grans 0.02 k/cumm (0.0-0.09); Absolute Basophil Count 0.05 k/cumm (0.0-0.2); Absolute Eosinophil Count 0.37 k/cumm (0.0-0.7); Absolute Lymphocyte Count 1.66 k/cumm (1.2-3.4); Absolute Monocyte Count 0.55 k/cumm (0.11-0.7); Absolute Neutrophil Count 2.65 k/cumm (1.2-6.7); Basophils % 0.9; Immature Grans % 0.4; Lymphocytes % 31.3; Mean Corp. HGB Concentration 34.1 g/dL (32.0-36.0); Mean Corpuscular Hemoglobin 28.9 pg (27.0-33.0); Mean Corpuscular Volume 84.7 fL (80-95); Mean Platelet Volume 9.7 fL (8.0-11.0); Monocytes % 10.4; Platelet Count 288 x1000/uL (130-400); RBC 4.84 m/cumm (4.50-6.00); RBC Distribution Width 13.4 % (11.8-14.1)
[2018-05-18 07:47] VITALS: BP 111/73; PULSE 80; RESP 18; TEMP 36.4; O2SAT 97
[2018-05-18 07:47] LABS: ALT 26 U/L (12-78); AST 16 U/L (15-37); Albumin 3.2 g/dL (3.4-5.0); Alkaline Phosphatase 85 U/L (46-116); Anion Gap 6.7 mmol/L (3-11); BUN 17 mg/dL (7-18); Bilirubin, Total 0.3 mg/dL (0.2-1.0); CO2 29.3 mmol/L (21.0-32.0); CREATININE 1.02 mg/dL (0.70-1.30); Calcium 8.8 mg/dL (8.5-10.1); Chloride 104 mmol/L (98-107); Glucose 103 mg/dL (70-100); Potassium 3.8 mmol/L (3.5-5.1); Sodium 140 mmol/L (136-145); Total Protein 7.2 g/dL (6.4-8.2)
[2018-05-18] MEDS: Pregabalin 100 MG CAP PO ×2 (09:25→20:51)
[2018-05-18] MEDS: Acetaminophen 325 MG TAB PO ×3 (09:25→20:49)
[2018-05-18] MEDS: Methadone Liquid 10 MG/ML 70 MG PO (09:25)
[2018-05-18] MEDS: buPROPion-CR 150 MG TABCR PO (09:25)
[2018-05-18] MEDS: Enoxaparin 40 MG/0.4 ML SYR SC (09:25)
--- NOTE | 2018-05-18 10:08 | PDOC.CMPRO ---
Date of Service: 05/18/18 Time of Service: 10:08 Care Management Progress Note S/O: Pt presented at interdisciplinary rounds. Willy is lying in his bed on the MS floor when CM visited this morning. He is engaged in conversation and makes good eye contact. He has a very flat affect however is talkative. Plan of care to continue IV ABX. Willy reported that he will need transportation upon discharge and has used [facility] in the past. CM will arrange transport at time of discharge. A: Willy is a 37 year old male admitted with acute febrile illness related to endocarditis. P: Willy will be discharged home when medically ready per MD. He will transport via [facility] and follow up with his primary care provider. CM will continue to provide support to patient and careteam regarding discharge planning and disposition.
--- NOTE | 2018-05-18 12:38 | PGE_ITS ---
PROGRESS NOTE DATE OF SERVICE May 17, 2018 at 3:44 p.m. ASSESSMENT AND PLAN 1. Acute febrile illness. Evidence of fevers for approximately one week with evidence of bacteremi a by prior blood cultures in patient with active ongoing IVDA. Obvious concern for potential infecti ve endocarditis. Transthoracic Echocardiogram did not reveal any evidence of vegetation. Currently aw aiting speciation of blood cultures prior to discussion with ID for determination of need for CIRA and length of course of antibiotic therapy. Continue vancomycin, and continue to monitor blood cultures. 2. HCV. Noted history of hepatitis C. 3. History of IV drug abuse. Currently under Methadone program through [facility]. Continue home Methado ne, dose verified by pharmacy. Urine drug screen positive for polysubstances that include amphetamine s, cocaine, THC, opiates, as well as his home his Methadone. 4. Prophylaxis. Subcutaneous Lovenox. SUBJECTIVE A 37-year-old male with a past medical history significant for IV drug abuse, currently on a narcotic program at [facility] in [facility], admitted from [facility] Emergency [facility] on 05/15/2018 with a 1-week history of fevers and chills with evidence of bacteremia from bloo d cultures from the of this month. The patient was initially seen in the Emergency Department on May 14, and due to a high suspicion for potential infectious endocarditis, recommendations were made for him to stay. However, the jaqui ent left against medical advice from the Emergency Department, with reported social issues at home t hat he had to attend to. He then returned to the Emergency Room, on the following day, seen again, and at that time agreed to the hospitalization. By that point, his blood cultures from the day prio r were positive for gram-positive cocci. At this point, his blood cultures from the are growing a Staph species that is not aureus. This morning, Mr. Watson again reports feeling improved. He has been maintained on vancomycin. He re ceferino afebrile, with his repeat blood cultures so far with no growth to date. PHYSICAL EXAMINATION GENERAL - The patient appears comfortable sitting up in bed. No acute distress noted. VITAL SIGNS - Temperature 36.3 and afebrile. Blood pressure 122/76. Heart rate 76. Pulse oximetry 98 % on room air. NECK - Neck is supple. CARDIOVASCULAR - Cardiovascular is regular. No evidence of murmur by exam. No rubs or gallops. PULMONARY - Clear to auscultation bilaterally without crackles, rhonchi or wheezing. ABDOMEN - Bowel sounds present, soft, nontender, nondistended. VASCULAR - No lower extremity edema noted. LABORATORY Basic metabolic panel entirely normal with the exception of a glucose of 108. LFTs are normal as well . CBC with mildly low white count of 4.38 with a normal differential. Normal hemoglobin and normal plat elet count. STUDIES Echocardiogram obtained 05/16/2018 with LVEF of 55 to 60%. No wall motion abnormalities. Mild MR. only .
[2018-05-18 16:56] VITALS: BP 120/70; PULSE 61; RESP 18; TEMP 35.9; O2SAT 97
[2018-05-18] MEDS: Normal Saline 500 ML 30 ML IV (18:11)
[2018-05-19 00:42] VITALS: BP 101/68; PULSE 58; RESP 18; TEMP 36.2; O2SAT 98
[2018-05-19] MEDS: VANCOMYCIN 1,250 MG in Normal Saline 250 ML 166.667 MG IVPB (01:48)
[2018-05-19 07:14] LABS: Abs Immature Grans 0.03 k/cumm (0.0-0.09); Absolute Basophil Count 0.05 k/cumm (0.0-0.2); Absolute Eosinophil Count 0.32 k/cumm (0.0-0.7); Absolute Monocyte Count 0.46 k/cumm (0.11-0.7); Eosinophils % 6.1; HCT 42.7 % (40.0-50.0); HGB 14.9 g/dL (13.5-17.5); Immature Grans % 0.6; Mean Corp. HGB Concentration 34.9 g/dL (32.0-36.0); Mean Corpuscular Hemoglobin 29.3 pg (27.0-33.0); Mean Corpuscular Volume 83.9 fL (80-95); Mean Platelet Volume 9.6 fL (8.0-11.0); Monocytes % 8.7; Neutrophils % 45.6; Platelet Count 307 x1000/uL (130-400); RBC 5.09 m/cumm (4.50-6.00); RBC Distribution Width 13.2 % (11.8-14.1); White Blood Cell Count 5.26 k/cumm (4.4-10.8)
[2018-05-19 07:33] LABS: ALT 30 U/L (12-78); AST 19 U/L (15-37); Albumin 3.3 g/dL (3.4-5.0); Alkaline Phosphatase 80 U/L (46-116); Anion Gap 4.2 mmol/L (3-11); BUN 18 mg/dL (7-18); Bilirubin, Total 0.3 mg/dL (0.2-1.0); CO2 30.8 mmol/L (21.0-32.0); Calcium 8.6 mg/dL (8.5-10.1); Chloride 104 mmol/L (98-107); Glucose 99 mg/dL (70-100); Potassium 4.2 mmol/L (3.5-5.1); Sodium 139 mmol/L (136-145); Total Protein 7.5 g/dL (6.4-8.2)
[2018-05-19 07:45] VITALS: BP 109/66; PULSE 59; RESP 17; TEMP 36.5; O2SAT 97
[2018-05-19] MEDS: Methadone Liquid 10 MG/ML 70 MG PO (08:13)
[2018-05-19] MEDS: Pregabalin 100 MG CAP PO ×2 (08:14→19:45)
[2018-05-19] MEDS: buPROPion-CR 150 MG TABCR PO (08:14)
[2018-05-19] MEDS: Enoxaparin 40 MG/0.4 ML SYR SC (08:14)
[2018-05-19 11:59] LABS: Vancomycin, Trough 20.7 ug/mL (10.0-20.0)
[2018-05-19] MEDS: VANCOMYCIN 1,000 MG in Normal Saline 250 ML 166.667 MG IVPB (14:03)
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
--- NOTE | 2018-05-19 14:26 | NUTRITION ---
Regular diet. Excellent PO intake. BMI 28.2 kg/m2 c/w overweight. No nutritional concerns at this time. Will continue to monitor.
[2018-05-19 15:53] VITALS: BP 101/62; PULSE 69; RESP 18; TEMP 36.7; O2SAT 97
[2018-05-19 20:15] VITALS: BP 105/65; PULSE 66; RESP 19; TEMP 36.5; O2SAT 97
--- NOTE | 2018-05-19 21:40 | PGE_ITS ---
DATE OF SERVICE: May 18, 2018 ASSESSMENT AND PLAN: #1. Acute febrile illness. Evidence of fevers for approximately one week with evidence of bacteremi a by prior blood cultures in patient with active ongoing IVDA. Obvious concern initially for potenti al infective endocarditis, with transthoracic echocardiogram without any evidence of vegetation. Blo od cultures, however, grew only group out of 05/14/18 that shows now growth of Staph epididymis, with t he remainder of blood cultures all being negative. Discussion with ID reveals recommendations for TE E prior to determination of exact course and duration of antibiotic therapy. For now will continue v ancomycin and monitor blood cultures. Plan to discuss with Cardiology in the morning. #2. Hepatis C virus. Noted history of hepatitis C. #3. History of IVDA. Currently on a methadone program through [facility]. #4. Prophylaxis. Continue subcutaneous Lovenox. SUBJECTIVE: Mr. Watson reportedly feels unchanged from prior, overall improved today. He has remai siena afebrile while hospitalized. No overnight events were reported. The patient remains afebrile. PHYSICAL EXAM: General: The patient appears comfortable sitting in bed, no acute distress noted. Vitals: Temperature 35.9 and afebrile. Blood pressure 120/70. Heart rate 61. Pulse oximetry 97% o n room air. Psych: Normal mood and affect. LABS: Normal basic metabolic panel and CBC.
--- NOTE | 2018-05-19 22:11 | PGE_ITS ---
DATE OF SERVICE: May 18, 2018 ASSESSMENT AND PLAN: #1. Acute febrile illness. Evidence of Staph epidermidis on one set of blood cultures from the , which may be contaminant. However, given the fact that the patient is an IV drug user, this may rep resent a real infection. Discussion was held with Infectious Disease from both [facility] and the [facility], with agreement that the patient needs a transesophageal echocardiog juan josé. Pending the results of this, the type and duration of antibiotic therapy will be determined. F or now, continue vancomycin. Given the patient's potential tolerance for sedation, Anesthesiology jung s been consulted for evaluation of the patient for potential use of propofol, and Cardiology was cons ulted as well. Tentative plans are for a CIRA on Saturday. He will need to be n.p.o. tomorrow night . #2. Hepatitis C virus - noted. #3. History of IVDA. Currently under methadone program through [facility]. Continue home methadone. Do se verified by Pharmacy. Urine drug screen positive for polysubstance use that included amphetamines , cocaine, THC, opiates, as well as his home methadone. #4. Prophylaxis. Subcutaneous Lovenox. SUBJECTIVE: A 37-year-old male with a past medical history significant for IVDA, currently on methad one program at [facility] in [facility], admitted from the [facility] Emerg ency Department on 05/15/18 with a one-week history of fevers and chills. The patient was initially seen in the ED on May 14, at that time noted to be febrile. Blood cult ures were drawn and due to concern for potential infectious endocarditis recommendations were made fo r the patient to stay. However, he left against medical advice to attend to some social situation at home. He then returned to the Emergency Department the next day, seen again, and at that time agree d to the hospitalization. At that time, his CBC showed a mild leukocytosis, and his blood cultures f rom the prior day were already positive for gram-positive cocci. He was initiated on vancomycin ther apy and admitted to the hospital. Following hospitalization the patient's repeat blood cultures and surveillance blood cultures have al l remained negative, and review of his blood cultures from the 8th show growth on one set only, speci ated to Staph epidermidis. Discussion with ID was held, with tentative plans for a CIRA to be schedul ed. No other events overnight. The patient remains afebrile. PHYSICAL EXAM: General: The patient appears quite comfortable sitting up in bed, no acute distress noted. Vitals: Temperature 36.7 and afebrile. Blood pressure 101/62. Heart rate 69. Pulse oximetry 97% o n room air. Neck: Supple. CV: Regular, non-tachycardic. No overt rubs, murmurs, or gallops appreciated. Pulm: Clear to auscultation bilaterally, without crackles, rhonchi, or wheezing. Abdomen: Bowel sounds present. Soft, nontender, nondistended. Vascular: No lower extremity edema noted. LABS: Normal comprehensive metabolic panel and CBC today. Microbiology with blood cultures showing no growth x24 hours and 72 hours. Blood cultures from the 8th with one set with no growth for 96 hours, other sets showing Staph epider midis.
[2018-05-20 00:16] VITALS: BP 96/61; PULSE 70; RESP 18; TEMP 36.5; O2SAT 97
[2018-05-20] MEDS: VANCOMYCIN 1,000 MG in Normal Saline 250 ML 166.667 MG IVPB ×3 (00:34→19:28)
[2018-05-20 07:57] LABS: Abs Immature Grans 0.08 k/cumm (0.0-0.09); Absolute Basophil Count 0.09 k/cumm (0.0-0.2); Absolute Lymphocyte Count 2.01 k/cumm (1.2-3.4); Absolute Monocyte Count 0.66 k/cumm (0.11-0.7); Absolute Neutrophil Count 3.33 k/cumm (1.2-6.7); Basophils % 1.4; Eosinophils % 6.1; HCT 45.6 % (40.0-50.0); HGB 15.8 g/dL (13.5-17.5); Immature Grans % 1.2; Lymphocytes % 30.6; Mean Corp. HGB Concentration 34.6 g/dL (32.0-36.0); Mean Corpuscular Hemoglobin 28.7 pg (27.0-33.0); Mean Corpuscular Volume 82.9 fL (80-95); Mean Platelet Volume 9.7 fL (8.0-11.0); Neutrophils % 50.7; Platelet Count 331 x1000/uL (130-400); RBC Distribution Width 13.3 % (11.8-14.1); White Blood Cell Count 6.57 k/cumm (4.4-10.8)
[2018-05-20 08:01] LABS: ALT 46 U/L (12-78); AST 34 U/L (15-37); Albumin 3.7 g/dL (3.4-5.0); Alkaline Phosphatase 90 U/L (46-116); Anion Gap 8.6 mmol/L (3-11); BUN 16 mg/dL (7-18); Bilirubin, Total 0.3 mg/dL (0.2-1.0); CO2 27.4 mmol/L (21.0-32.0); CREATININE 0.87 mg/dL (0.70-1.30); Calcium 9.2 mg/dL (8.5-10.1); Chloride 101 mmol/L (98-107); Glucose 97 mg/dL (70-100); Potassium 4.1 mmol/L (3.5-5.1); Sodium 137 mmol/L (136-145); Total Protein 8.1 g/dL (6.4-8.2)
[2018-05-20] MEDS: Pregabalin 100 MG CAP PO ×2 (08:52→20:48)
[2018-05-20] MEDS: Methadone Liquid 10 MG/ML 70 MG PO (08:52)
[2018-05-20] MEDS: buPROPion-CR 150 MG TABCR PO (08:52)
[2018-05-20] MEDS: Enoxaparin 40 MG/0.4 ML SYR SC (08:52)
[2018-05-20] MEDS: Normal Saline 500 ML 30 ML IV (10:29)
[2018-05-20 11:00] VITALS: BP 110/77; PULSE 86; RESP 16; TEMP 36.3; O2SAT 98
[2018-05-20] MEDS: Acetaminophen 325 MG TAB PO (12:16)
--- NOTE | 2018-05-20 15:16 | PDOC.CMPRO ---
Care Management Progress Note S/O: Willy ambulated independently through the hallways today, spoke on his cell phone and remained detached in interaction. He will have an ECHO tomorrow to inform next steps and per MD; NPO after midnight. Undetermined at this time if Teddy will require long term care phlebotomist IV ABX. A: Willy is a 37 year old male admitted with acute febrile illness as well as to rule out endocarditis. P: Undetermined whether Willy will require course of IV ABX per MD. [facility] and follow up with his primary care provider. CM will continue to provide support to patient and care team regarding discharge planning and disposition.
--- NOTE | 2018-05-20 15:28 | CMPROGNOTE_ITS ---
Care Management Progress Note S/O: Willy ambulated independently through the hallways today, spoke on his cell phone and remained detached in interaction. He will have an ECHO tomorrow to inform next steps and per MD; NPO after midnight. 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 A: Willy is a 37 year old male admitted with acute febrile illness as well as to rule out endocarditis. P: Undetermined whether Willy will require course of IV ABX per MD. He will transport via [facility] and follow up with his primary care provider. CM will continue to provide support to patient and care team regarding discharge planning and disposition.
[2018-05-20 16:01] VITALS: BP 116/70; PULSE 73; RESP 18; TEMP 35.6; O2SAT 96
[2018-05-20] MEDS: Mylanta Suspension 30 ML CUP PO (16:48)
[2018-05-20] MEDS: Normal Saline Flush 10 ML SYR IVP ×2 (17:02→17:30)
--- NOTE | 2018-05-20 21:53 | PGE_ITS ---
DATE: May 20, 2018 ASSESSMENT AND PLAN: #1. Rule out endocarditis. Given the mechanism of his bacteremia, we are planning for a transesopha geal echocardiogram in the morning. N.p.o. after midnight. This is set up with Dr. Day. Jovanna altamirano that result, we will consult with Infectious Disease regarding management going forward. If there are vegetations he would be committed to a full six weeks of antibiotic therapy. In the absence of a ny vegetations, we may be able to stop antibiotics given his lack of further symptomatology. REASON FOR ADMISSION: Acute febrile illness, rule out endocarditis. SUBJECTIVE: Admitted several days ago with high fever in the setting of IV drug abuse. He had one o ut of four bottles positive for Staph epidermidis on 05/14/18. Subsequent blood cultures have been no growth. Infectious Disease recommended a transesophageal echocardiogram to guide subsequent therapy. He continues on IV vancomycin. OBJECTIVE: Vital signs: Temperature 35.6, he has been afebrile. Blood pressure 116/70. Respiratory rate 18. Pulse 73. Saturation 96% on room air. General: On exam he sits upright readily. He is moving around the bed without any evident dysfuncti on. He has no dyspnea. Lungs: His lung sounds are completely clear on the right and left. Heart: Heart sounds are strong and regular. I do not appreciate a murmur. Abdomen: Nontender. Lower extremities: No edema. I did not see any evident skin lesions in the areas that were exposed. LABORATORY EVALUATION: White count 6.57 thousand, hemoglobin 15.8, hematocrit 45.6, platelets 331,00 0, 50 segs, 30 lymphs, no bands. Sodium 137, potassium 4.1, BUN 16, creatinine 0.87, blood sugar 97.
[2018-05-20 23:30] VITALS: BP 102/64; PULSE 56; RESP 16; TEMP 35.5; O2SAT 96
[2018-05-21 06:00] LABS: Vancomycin, Trough 12.5 ug/mL (10.0-20.0)
[2018-05-21] MEDS: VANCOMYCIN 1,000 MG in Normal Saline 250 ML 166.667 MG IVPB (06:14)
[2018-05-21 07:55] VITALS: BP 119/79; PULSE 67; RESP 16; TEMP 36.5; O2SAT 100
--- NOTE | 2018-05-21 08:15 | MERGE_ITS ---
*[facility]* *[facility]* [address] [place] [address] Date of study: 05/21/2018 Transesophageal Echocardiography 2D, spectral Doppler, and color Doppler *STUDY CONCLUSIONS* Impressions: There was no evidence of a vegetation. Summary: 1. Left ventricle: Systolic function was normal. Wall motion was normal; there were no regional wall motion abnormalities. 2. Left atrium: No evidence of thrombus in the atrial cavity or appendage. 3. Right ventricle: The cavity size was normal. Wall thickness was normal. Systolic function was normal. *PATIENT PRESENTATION* Height: 177.8cm ((70in) ) S/D Pressure: 116 / 70 Weight: 88.9kg ((195.6lb) ) BSA: 2.11m^2 Darwin May Michael PERFORMING Unknown PERFORMING Suraj Day PERFORMING [facility] LEAK DETECTION ENGINEER RT Carlos (R)(CT), [facility] *PROCEDURE DATA* Procedure information: The patient was identified by two identifiers. Suraj Day MD supervised and was present for the performance of the entire procedure. This study was interpreted by [facility]. Pertinent images and digital data are archived for permanent storage and are available for subsequent review. Study status: Routine. Diagnostic transesophageal echocardiography. 2D, spectral Doppler, and color Doppler. Consent: The risks, benefits, and alternatives to the procedure were explained to the patient and consent was verbally obtained. Barriers to education: No barriers to education identified. Initial setup. The patient was brought to the laboratory in the fasting state. Surface ECG leads, blood pressure measurements, and pulse oximetric signals were monitored. Sedation. Deep sedation was administered by Anesthesiology. A Transesophageal echocardiogram was performed for endocarditis evaluation. Topical anesthesia was obtained using viscous lidocaine. An adult multiplane transesophageal probe was inserted by Suraj Day MDwithout difficulty. Image quality was adequate. The transesophageal probe was removed. Study completion: The patient tolerated the procedure well. There was no blood loss or specimens removed during the procedure. There were no complications. *INDICATIONS AND HISTORY* Indications: Fever, Unsp R50.9. History: PMH: R/o endocarditis. No prior cardiac history. *CARDIAC ANATOMY* Left ventricle: Systolic function was normal. Wall motion was normal; there were no regional wall motion abnormalities. Aortic valve: Structurally normal valve. Trileaflet; normal thickness leaflets. Cusp separation was normal. No evidence of vegetation. Doppler: There was no significant regurgitation. Aorta: There was no atheroma. There was no evidence for dissection. Aortic root: The aortic root was not dilated. Ascending aorta: The ascending aorta was normal in size. Aortic arch: The aortic arch was normal in size. Descending aorta: The descending aorta was normal in size. Mitral valve: Structurally normal valve. Leaflet separation was normal. No evidence of vegetation. Doppler: There was trivial regurgitation. Left atrium: The atrium was normal in size. No evidence of thrombus in the atrial cavity or appendage. The appendage was morphologically a left appendage, multilobulated, and of normal size. Emptying velocity was normal. Atrial septum: No defect or patent foramen ovale was identified. Doppler showed no atrial level shunt. Right ventricle: The cavity size was normal. Wall thickness was normal. Systolic function was normal. Pulmonic valve: Structurally normal valve. No evidence of vegetation. Doppler: There was no significant regurgitation. Tricuspid valve: Structurally normal valve. Leaflet separation was normal. No evidence of vegetation. Doppler: There was no significant regurgitation. Pulmonary artery: The main pulmonary artery was normal-sized. Right atrium: The atrium was normal in size. No evidence of thrombus in the atrial cavity or appendage. The appendage was morphologically a right appendage. Pericardium: There was no pericardial effusion. I have personally reviewed the images and have reviewed and edited the reported findings. Electronically signed by Suraj Day 05/21/2018 09:32
--- NOTE | 2018-05-21 09:24 | CCONE_ITS ---
CARDIOLOGY PREPROCEDURE HISTORY AND PHYSICAL Date of Procedure: May 21, 2018 Date Dictated: May 21, 2018 Type of Procedure: Transesophageal echocardiogram Assessment: Fever of unknown origin concerning for endocarditis. Negative blood cultures. Negative transthoracic echocardiogram. Plan: Will proceed with transesophageal echocardiogram with sedation provided by Anesthesia. Procedure and risks explained. Informed consent obtained. History of Present Illness: Mr. Watson is a 37-year-old man with HCV and IV drug abuse, currently admitted with fever of unknown origin concerning for endocarditis. Negative blood cultures. Transthoracic echocardiogram did not show evidence of endocarditis and a CIRA has been requested. Mr. Watson denies shortness of breath, chest pain, dysphagia, odynophagia, focal deficits, bleeding, or GI symptoms. Review of Systems: Review of systems was performed. All pertinent positives and negatives as mentioned in HPI. Allergies: Reviewed in electronic medical record. Medications: Reviewed in electronic medical record. Physical Exam: Vital signs: Temperature 35.5 degrees celsius, heart rate 56, blood pressure 102 /64, O2 saturation 96% on room air. General: No acute distress. HEENT: Mucous membranes moist. Oropharynx clear. No masses, erythema or thrush. Lungs: Clear to auscultation bilaterally. No rhonchi, rales, or wheezes. Cardiovascular: Regular rate and rhythm, normal S1 and S2, no murmurs. Extremities: No cyanosis or edema. Neuro: Alert and oriented x3, grossly intact. Data: Laboratory studies and transthoracic echo reviewed.
--- NOTE | 2018-05-21 09:47 | ROE_ITS ---
CARDIOLOGY PROCEDURE NOTE DATE OF SERVICE May 21, 2018 TYPE OF PROCEDURE Transesophageal Echocardiogram. INDICATION Fever. FINDINGS No significant valvular heart disease. No vegetations or intracardiac thrombus. Normal LV and RV function. COMMENTS After verbal and written informed consent were obtain CIRA was performed under deep sedation provided by anesthesia. There were no immediate complications.
[2018-05-21] MEDS: Pregabalin 100 MG CAP PO (10:10)
[2018-05-21] MEDS: Enoxaparin 40 MG/0.4 ML SYR SC (10:10)
[2018-05-21] MEDS: buPROPion-CR 150 MG TABCR PO (10:10)
[2018-05-21] MEDS: Methadone Liquid 10 MG/ML 70 MG PO (10:13)
--- NOTE | 2018-05-21 12:32 | DISCHARGE ---
Discharge - Discharge Orders Referrals: Abhishek Rouse [Primary Care Provider] - 05/26/18 3:00 pm - Discharge Plan Disposition: HOME Condition: Good Diet:: As Tolerated Equipment/Supplies:: No Equipment Needed Activity:: Activity as Tolerated - Instructions Micromedex Instructions: Endocarditis (DC) Additional Instructions: Endocarditis ruled out. Avoid IV drugs.
--- NOTE | 2018-05-21 13:38 | PDOC.CMDIS ---
LACE Index Scoring Tool - Questions: Length of Stay (in days): 7 - 13 Acuity (Admit via E.D.?): Yes E.D. Visits: 3 - Answers: Total Score: 11 Risk of Readmission: High Risk Care Management Discharge Reason for Hospitalization: R/O Endocarditis, Acute febrile illness Discharge Plan: Willy will return home when ready per MD. He will follow up with his PCP and plan of care. He will transport home with a friend. Patient/Family Education Needs: Review of discharge instructions, community supports for sobriety, discuss Ask Me Three.
[2018-05-21] MEDS: Bacitracin 1 PACKET (14:06)
--- NOTE | 2018-05-21 18:20 | PDOC.DCSUM_ITS ---
Date of Service: 05/21/18 Time of Service: 18:17 This is a 37-year-old male that has trouble with recurrent IV drug abuse. He had presented to the emergency room on 05/14/2018 with a febrile illness and there was a concern that he had systemic bacteremia and possible endocarditis. He signed out AGAINST MEDICAL ADVICE. He returned the following day did not have evidence of a fever but agreed to be admitted for parenteral antibiotics and further monitoring. Blood cultures from 05/14/2018 grew 1 out of 2 bottles of staph epidermidis. He was empirically started on vancomycin for bacteremia and possible endocarditis. Further workup for other causes of systemic illness came up negative including chest x-ray, urinalysis, skin check. He never developed a significant murmur. His transthoracic echocardiogram did not demonstrate evidence of endocarditis. Dr. Reyna consulted infectious disease at [facility] and [facility] [[email or web address] and both agreed that he would need a transesophageal echocardiogram. These arrangements were made and he underwent CIRA testing on 05/21/2018. No vegetations were identified and the exam was low suspicion for endocarditis. Blood cultures taken on 05/16/2018 and 05/18/2018 were no growth. Further infectious disease consultation with Dr. Pat recommended stopping antibiotic therapy. He recommended a surveillance blood culture to be done in about 5 days with his PCP. Patient was feeling fine and had absolutely no symptoms. A repeat exam revealed no evidence of a cardiac murmur. Laboratory Results WBC 6.57 k/cumm (4.4-10.8) 05/20/18 07:15 RBC 5.50 m/cumm (4.50-6.00) 05/20/18 07:15 Hgb 15.8 g/dL (13.5-17.5) 05/20/18 07:15 Hct 45.6 % (40.0-50.0) 05/20/18 07:15 MCV 82.9 fL (80-95) 05/20/18 07:15 MCH 28.7 pg (27.0-33.0) 05/20/18 07:15 MCHC 34.6 g/dL (32.0-36.0) 05/20/18 07:15 RDW 13.3 % (11.8-14.1) 05/20/18 07:15 Plt Count 331 x1000/uL (130-400) 05/20/18 07:15 MPV 9.7 fL (8.0-11.0) 05/20/18 07:15 Immature Gran % 1.2 05/20/18 07:15 Neutrophils % 50.7 05/20/18 07:15 Lymphocytes % 30.6 05/20/18 07:15 Monocytes % 10.0 05/20/18 07:15 Eosinophils % 6.1 05/20/18 07:15 Basophils % 1.4 05/20/18 07:15 Absolute Neutrophils 3.33 k/cumm (1.2-6.7) 05/20/18 07:15 Absolute Lymphocytes 2.01 k/cumm (1.2-3.4) 05/20/18 07:15 Absolute Monocytes 0.66 k/cumm (0.11-0.7) 05/20/18 07:15 Absolute Eosinophils 0.40 k/cumm (0.0-0.7) 05/20/18 07:15 Absolute Basophils 0.09 k/cumm (0.0-0.2) 05/20/18 07:15 ESR 13 MM/HR (0-15) 05/16/18 06:47 Sodium 137 mmol/L (136-145) 05/20/18 07:15 Potassium 4.1 mmol/L (3.5-5.1) 05/20/18 07:15 Chloride 101 mmol/L (98-107) 05/20/18 07:15 Carbon Dioxide 27.4 mmol/L (21.0-32.0) 05/20/18 07:15 Anion Gap 8.6 mmol/L (3-11) 05/20/18 07:15 BUN 16 mg/dL (7-18) 05/20/18 07:15 Creatinine 0.87 mg/dL (0.70-1.30) 05/20/18 07:15 Estimated GFR/1.73 m2 >= 60.00 (mL/min/1.73m2) 05/20/18 07:15 Glucose 97 mg/dL (70-100) 05/20/18 07:15 Calcium 9.2 mg/dL (8.5-10.1) 05/20/18 07:15 Magnesium 2.1 mg/dL (1.8-2.4) 05/16/18 06:47 Total Bilirubin 0.3 mg/dL (0.2-1.0) 05/20/18 07:15 AST 34 U/L (15-37) 05/20/18 07:15 ALT 46 U/L (12-78) 05/20/18 07:15 Alkaline Phosphatase 90 U/L (46-116) 05/20/18 07:15 Creatine Kinase 167 U/L (39-308) 05/15/18 16:58 Troponin I < 0.02 ng/mL (0.00-0.06) 05/15/18 16:58 C-Reactive Protein 5.68 mg/dL (0.0-0.3) H 05/16/18 06:47 Total Protein 8.1 g/dL (6.4-8.2) 05/20/18 07:15 Albumin 3.7 g/dL (3.4-5.0) 05/20/18 07:15 Lipase 47 U/L (73-393) L 05/15/18 16:58 TSH 1.87 uIU/mL (0.358-3.74) 05/15/18 16:58 Urine Color Brown (Yellow) 05/15/18 18:20 Urine Clarity Cloudy 05/15/18 18:20 Urine pH 5.5 (5-8) 05/15/18 18:20 Ur Specific [place] >= 1.030 (1.005-1.025) H 05/15/18 18:20 Urine Protein 100 mg/dL (Negative) H 05/15/18 18:20 Urine Ketones Trace mg/dL (Negative) H 05/15/18 18:20 Urine Blood Large (Negative) H 05/15/18 18:20 Urine Nitrite Negative (Negative) 05/15/18 18:20 Urine Bilirubin Small (Negative) H 05/15/18 18:20 Urine Urobilinogen 0.2 EU/dL (Up TO 0.2) 05/15/18 18:20 Ur Leukocyte Esterase Negative (Negative) 05/15/18 18:20 Urine RBC >50 (0-2) H 05/15/18 18:20 Urine WBC Not Applicable 05/15/18 18:20 Ur Epithelial Cells Not Applicable 05/15/18 18:20 Urine Crystals Not Applicable 05/15/18 18:20 Urine Bacteria Not Applicable 05/15/18 18:20 Urine Mucus Moderate (Negative) 05/15/18 18:20 Ur Culture Indicated? Yes 05/15/18 18:20 Urine Myoglobin 27 mcg/L (<=21) H 05/15/18 16:58 Urine Glucose Negative mg/dL (Negative) 05/15/18 18:20 Vancomycin Trough 12.5 ug/mL (10.0-20.0) 05/21/18 05:35 Acetaminophen [Tylenol Extra Strength] 1 tab PO PRN PRN 09/24/13 Pregabalin [Lyrica] 100 mg PO TID 08/09/15 Methadone HCl 70 mg PO DAILY 12/15/15 BuPROPion CR [Wellbutrin Sr] 150 mg PO DAILY 05/14/18 Allergies Allergy/AdvReac Type Severity Reaction Status Date / Time codeine Allergy Intermediate Hives Unverified 05/15/18 16:35 amoxicillin AdvReac Intermediate Nausea Unverified 05/15/18 16:35 Penicillins AdvReac Mild Nausea Unverified 05/15/18 16:35 All Active Problems Acute febrile illness (Acute) Acute kidney injury (Acute 11/23/13) Asymptomatic microscopic hematuria (Acute) Cough (Acute) History of intravenous drug abuse (Acute) Hyperkalemia (Acute 11/23/13) Proteinuria (Acute) Mood disorder (Chronic) Disposition: Discharged to home. Follow-up with Dr. Rouse as scheduled. Total time arranging discharge 64 minutes. Cc: Dr. Rouse
== END 2018-05-21 14:05 | disposition home or self-care (01) | DRG 864 ==
LOC: MS 11-21 13:11 → ER 11-21 13:11
PROVIDERS: Internal Medicine; Admitting Provider Internal Medicine; Emergency Provider Student in an Organized Health Care Education/Training Program; PCP Family Medicine Adult Medicine; Visit Provider Family Medicine
DX: R50.9 Fever, unspecified (principal); R78.81 Bacteremia; F11.20 Opioid dependence, uncomplicated; R80.9 Proteinuria, unspecified; R31.21 Asymptomatic microscopic hematuria; I34.0 Nonrheumatic mitral (valve) insufficiency; B19.20 Unspecified viral hepatitis C without hepatic coma; F19.11 Other psychoactive substance abuse, in remission; F14.90 Cocaine use, unspecified, uncomplicated; F12.90 Cannabis use, unspecified, uncomplicated; F11.90 Opioid use, unspecified, uncomplicated; F15.90 Other stimulant use, unspecified, uncomplicated
CPT/HCPCS: 36415 ×7; 80048; 82550; 80053 ×5; 86140; 83735; 80202 ×3; 83690; 84443; 84484; 81015; 85025 ×6; 85652; 81003; 87086; 87040 ×5; 83874; 36569; 93306 ×3; 93320; 93325; 93312; 99285; 96365; 96361 ×2; 96375; 96366; 93010; 99232 ×5; 99239; J1200; J1885; J2250; J1650 ×5; 36410; 93005; 96372; 99221; 99223

== ENCOUNTER 2019-05-12 00:52 | Outpatient (CLI) | payer OTHER, SELFPAY ==
--- NOTE | 2019-05-12 08:18 | DI.CT_ITS ---
SYMPTOM/DIAGNOSIS: LT SIDED FLANK PAIN, H/O KIDNEY STONES RENAL COLIC CT: Comparison is made with contrast enhanced CT dated 12/01/14. There is a stone seen in the left intrarenal collecting system measuring 10 cm. which appears non obstructing. 4 mm. stone is seen at the lower pole of the left kidney. There is no hydronephrosis or ureteral calculi. The urinary bladder is unremarkable. The prostate is normal in size. There are a few vaguely visualized low density areas on both kidneys, better seen on the previous exam, representing cysts. The liver shows severe fatty infiltration. The gallbladder, spleen, pancreas and adrenals are unremarkable. The appendix is normal. There is a moderate quantity of stool. There is no bowel inflammation or distension. IMPRESSION: 10 mm. non obstructing stone in the left intrarenal collecting system. Severe fatty infiltration of the liver.
== END 2019-05-12 01:12 ==
PROVIDERS: PCP Family Medicine Adult Medicine; Visit Provider Nurse Practitioner Adult Health
DX: R10.32 Left lower quadrant pain (principal); N20.0 Calculus of kidney; K76.0 Fatty (change of) liver, not elsewhere classified
CPT/HCPCS: 74176

== ENCOUNTER 2019-11-17 01:03 | Outpatient (CLI) | payer OTHER, SELFPAY ==
--- NOTE | 2019-11-17 08:11 | DI.US_ITS ---
EXAM: US ABDOMEN CLINICAL HISTORY: ASSESS FOR SEVERE FATTY LIVER TECHNIQUE: Ultrasound performed using standard protocol. COMPARISON: CT renal colic wo from 05/12/2019 FINDINGS: The liver is extremely echogenic. Posterior portions of the liver are not well seen. Findings are c onsistent with severe fatty infiltration as seen on previous CT. The liver measures 17 cm in length. The gallbladder is unremarkable. The tail the pancreas is not well seen. The spleen is normal in size. The right kidney is unremarkable. 13 millimeter stone is noted centrally in the left kidney. There is no ascites. The aorta is normal in diameter. IMPRESSION: Severe fatty infiltration of the liver.
== END 2019-11-17 01:23 ==
PROVIDERS: PCP Family Medicine Adult Medicine; Visit Provider Nurse Practitioner Family
DX: K76.0 Fatty (change of) liver, not elsewhere classified (principal)
CPT/HCPCS: 76700

== ENCOUNTER 2019-12-03 07:07 | Day surgery (SDC) | payer OTHER, SELFPAY ==
[2019-12-03] VITALS (8 sets, daily range): BP systolic 96–116; BP diastolic 55–72; PULSE 72–90; RESP 14–18; TEMP 36–36.6; O2SAT 90–94
[2019-12-03] MEDS: Lactated Ringers 1,000 ML 80 ML IV (07:50)
--- NOTE | 2019-12-03 08:23 | HPE_ITS ---
Date of service: 12/03/19 Time of Service: 08:23 Assessment and Plan Assessment and plan (1) Renal calculus, left: Status: Acute Assessment and plan: We will proceed with cystoscopy, left retrograde py elogram, left flexible ureteroscopy with holmium laser lithotripsy of the stone. We discussed potential complications including bleeding, infection, inability to access the stone requiring a stent and staged procedure, ureteral/renal injury. History of Present Illness History of Present Illness Chief Complaint: Left kidney stone Narrative: (1) Kidney stone on left side: Greater than 50% of this 45 min OV was in counseling and coordination of the assessment/plan. We reviewed his renal CT that he had done May 2019. He does have a 10 mm stone in the intrarenal pelvis of the left kidney. He does appear to have some intermittent discomfort to that side along with left CVA tenderness. His urinalysis did show trace amount of blood however it was negative for infection. We discussed the procedure of doing a cystoscopy with a retrograde pyelogram and stone removal using a holmium laser. He expresses understanding and would like to proceed with the procedure. Preop orders were completed and given to the nurse. She will plan on calling the facility to schedule this appointment for his surgical procedure. We did discuss that any medication management for pain related the surgical procedure and stone extraction would be the responsibility of the correctional facility. He understands this matter. This will also be related to the infirmary at the correctional institution -this note serves as that notification. Note to be sent to correct facility. Willy states that he has been moved from [facility] to [place]. Nurse was made aware and will call there. We will plan on seeing this patient as needed and as scheduled for follow-ups. Dictation was done by [employer] voice recognition. Errors may be present within the note. Orders: Urinalysis Dip Only Today HPI HPI Willy is a 39-year-old male referred to urology by the correctional facility. He is complaining of left flank pain and has a history of kidney stones. He reports that he recently had a renal CT done at our facility. He states that he was told he had 2 kidney stones. For the last 5 months he is try to use Flomax, Tylenol and NSAIDs to help with the discomfort and removal of the stones. He states he continues to have intermittent colicky left flank pain almost on a daily basis. He says that he will have some frequency and urgency. He denies hematuria. He notes intermittent dysuria. He reports having history of kidney stones. He is never needed surgical intervention for removal of stones. He states that he has passed all the stones on his own. He thinks they are made out of calcium oxalate but cannot fully recall and is unsure if he is actually had one analyzed. He has never seen urology for stones. He has no history of gout or parathyroidism. PMH Anxiety depression Substance abuse Migraines Lower back pain Constipation Hep C carrier Kidney stones SX None reported Social Former alcohol intake Former smoker Resides at a correctional facility Allergies Reviewed elsewhere in the chart Medications Reviewed elsewhere in the chart Family Hx No known family history of urological concerns Review of Systems Const: Denies chills, fatigue, fever(s) or weight loss Card: Denies chest pain or dyspnea Resp: Denies dyspnea GI: Reports constipation; Denies abdominal pain or diarrhea : Reports urinary frequency and urinary urgency; Denies hematuria, dysuria, flank pain, nocturia, urinary hesitancy or urinary incontinence Endo: Denies fatigue Exam Const Orientation: alert, awake and oriented x3 Other: VS reviewed that were done by nurse Eyes Sclera: sclerae normal Resp Effort & Inspection: normal respiratory effort GI Inspection: normal to inspection and non-distended Palpation: soft and nontender General: CVA tenderness on the left; not on the right Extrem General: full ROM Vital Signs 10/19/19 08:07 Height 5 ft 10 in Weight 210 lb BMI 30.1 Comment unable to obtain BP d/t handcuffs Intake Visit Reasons: NEW PT, 10MM [place] Allergies Allergy/AdvReac Type Severity Reaction Status Date / Time codeine Allergy Intermediate Hives Unverified 05/15/18 16:35 amoxicillin AdvReac Intermediate Nausea Unverified 05/15/18 16:35 Penicillins AdvReac Mild Nausea Unverified 05/15/18 16:35 Home Medications Medication Instructions Recorded Confirmed Type acetaminophen [Tylenol Extra 1 tab PO PRN PRN 09/24/13 10/19/19 History Strength] pregabalin [Lyrica] 100 mg PO TID 08/09/15 10/19/19 History methadone 70 mg PO DAILY 12/15/15 10/19/19 History bupropion HCl 150 mg PO DAILY 05/14/18 10/19/19 History amitriptyline 25 mg tablet 25 mg PO DAILY 08/12/19 10/19/19 History clonidine HCl 0.1 mg tablet 0.1 mg PO DAILY tab 08/12/19 10/19/19 History cranberry extract 200 mg capsule 200 mg PO DAILY 08/12/19 10/19/19 History docusate sodium 100 mg capsule 100 mg PO BID PRN 08/12/19 10/19/19 History hydroxyzine HCl 50 mg tablet 50 mg PO DAILY tab 08/12/19 10/19/19 History multivitamin 1 cap PO DAILY 08/12/19 10/19/19 History naproxen 500 mg tablet 500 mg PO BID 08/12/19 10/19/19 History psyllium husk (with sugar) 3.4 1 tbs PO DAILY 08/12/19 10/19/19 History gram/12 gram oral powder tamsulosin 0.4 mg capsule 0.4 mg PO QHS 08/12/19 10/19/19 History venlafaxine 75 mg tablet,extended 75 mg PO DAILY 08/12/19 10/19/19 History release 24 hr Results Urinalysis (Dip Only) Urine Color (Office) Last Edit by Tiffany Toribio RN on 10/19/19 08:32 Urine Clarity (Office) Last Edit by Tiffany Toribio RN on 10/19/19 08:32 Urine Glucose (Office) Negative Last Edit by Tiffany Toribio RN on 10/19/19 08:32 Urine Bili (Office) Negative Last Edit by Tiffany Toribio RN on 10/19/19 08:32 Urine Ketones (Office) Negative Last Edit by Tiffany Toribio RN on 10/19/19 08:32 Urine Specific [place] (Office 1.020 Last Edit by Tiffany Toribio RN on 10/19/19 08:32 Urine Blood (Office) Trace-Intact Last Edit by Tiffany Toribio RN on 10/19/19 08:32 Urine pH (Office) 5.5 Last Edit by Tiffany Toribio RN on 10/19/19 08:32 Urine Protein (Office) Negative Last Edit by Tiffany Toribio RN on 10/19/19 08:32 Urine Urobilinogen (Office) 0.2 Last Edit by Tiffany Toribio RN on 10/19/19 08:32 Urine Nitrite (Office) Negative Last Edit by Tiffany Toribio RN on 10/19/19 08:32 Urine Leukocyte (Office) Negative Last Edit by Tiffany Toribio RN on 10/19/19 08:32 [facility] Medical History (Updated 08/12/19 @ 09:32 by Saumya Rome) Adjustment reaction with anxiety and depression (Acute) Carrier of viral hepatitis C (Acute) Constipation (Acute) Low back pain (Acute) Migraine (Chronic) Substance abuse (Acute) Social History Smoking/Tobacco Use Status: Current every day Drug use: Current Sobriety Do you feel safe in your relationship?: Yes Questionnaire [place] SBIRT Screen Brief Intervene Refer Treat Smoking/Tobacco Use Status: Current every day Coding Level of Care Code New Patient Level 4 Diagnoses Kidney stone on left side N20.0 [facility] Medical History (Updated 12/03/19 @ 08:26 by Jorje Segal MD) Adjustment reaction with anxiety and depression (Acute) Carrier of viral hepatitis C (Acute) Constipation (Acute) Hx of hepatitis C (Acute) per corrections documentation pt. has been successfully treated in 2002 ([facility] Hx of traumatic brain injury (Acute) Unable to verify this Low back pain (Acute) Migraine (Chronic) Renal calculus, left (Acute) Substance abuse (Acute) Surgical History (Updated 12/03/19 @ 07:20 by Allie Reynoso) Hx of colonoscopy (Chronic) Social History Smoking/Tobacco Use Status: Former Tobacco Use Quit Date: 11/07/18 Alcohol Intake: former Drug use: Current Sobriety Substance use type: IV drugs Details: alcohol years ago Current gender identity: male Do you feel safe in your relationship?: Yes Additional Social history: At [facility] Meds Home Medications and Allergies Home Medications Medication Instructions Recorded Confirmed Type acetaminophen [Tylenol Extra 2 tab PO PRN PRN 09/24/13 12/03/19 History Strength] methadone 90 mg PO DAILY 12/15/15 12/03/19 History amitriptyline 25 mg tablet 25 mg PO DAILY 08/12/19 12/03/19 History clonidine HCl 0.1 mg tablet 0.1 mg PO DAILY tab 08/12/19 12/03/19 History cranberry extract 200 mg capsule 200 mg PO DAILY 08/12/19 12/03/19 History docusate sodium 100 mg capsule 100 mg PO HS 08/12/19 12/03/19 History hydroxyzine HCl 50 mg tablet 50 mg PO DAILY tab 08/12/19 12/03/19 History multivitamin 1 cap PO DAILY 08/12/19 12/03/19 History naproxen 500 mg tablet 500 mg PO BID 08/12/19 12/03/19 History psyllium husk (with sugar) 3.4 1 tbs PO DAILY 08/12/19 12/03/19 History gram/12 gram oral powder tamsulosin 0.4 mg capsule 0.4 mg PO QHS 08/12/19 12/03/19 History venlafaxine 75 mg tablet,extended 75 mg PO DAILY 08/12/19 12/03/19 History release 24 hr Allergies Allergy/AdvReac Type Severity Reaction Status Date / Time codeine Allergy Intermediate Hives Unverified 12/03/19 07:15 amoxicillin AdvReac Intermediate Nausea Unverified 12/03/19 07:16 Penicillins AdvReac Mild Nausea Unverified 12/03/19 07:16 Exam Resp Effort & Inspection: normal respiratory effort Auscultation: clear to auscultation bilaterally Cardio Rate: regular rate Rhythm: regular rhythm
[2019-12-03] MEDS: CIPROFLOXACIN 400 MG/200 ML BAG 200 MG IVPB (08:54)
[2019-12-03] MEDS: Lidocaine 2% Jelly 6 ML SYR (09:14)
[2019-12-03] MEDS: Omnipaque 300 MG/ML 50 ML BTL (09:52)
--- NOTE | 2019-12-03 10:09 | W.PM.DSUDISC ---
Discharge Plan Disposition Patient Disposition[facility] Condition: Stable Discharge Details Reason For Visit: kidney stone surgery Attending Provider: Jorje Segal Primary Care Provider: Abhishek Rouse Home Meds and New Rx's Prescriptions: No Action amitriptyline 25 mg tablet 25 mg PO DAILY RF: 0 Konsyl (sugar) 3.4 gram/12 gram powder 1 tbs PO DAILY RF: 0 cranberry extract 200 mg capsule 200 mg PO DAILY RF: 0 multivitamin Capsule 1 cap PO DAILY RF: 0 naproxen 500 mg tablet 500 mg PO BID RF: 0 venlafaxine 75 mg tablet extended release 24hr 75 mg PO DAILY RF: 0 tamsulosin 0.4 mg capsule 0.4 mg PO QHS RF: 0 clonidine HCl 0.1 mg tablet 0.1 mg PO DAILY RF: 0 hydroxyzine HCl 50 mg tablet 50 mg PO DAILY RF: 0 docusate sodium 100 mg capsule 100 mg PO HS RF: 0 acetaminophen [Tylenol Extra Strength] 500 MG tablet 2 tab PO PRN PRNRF: 0 methadone 10 MG/ML syringe 90 mg PO DAILY RF: 0 Pain Reliever Plus 250-250-65 mg Tablet 1 tab PO ONCE RF: 0 Discharge Instructions Additional Instructions: no need to strain urine (we have lots to analyze already) followup 6 weeks with renal ultrasound prior to visit (I placed the order for the US but left the location as determined by patient) pain management by facility providers (I would suggest oral Toradol 10 mg PO q8 hr prn for no more than 5 days) Activity:: Activity as Tolerated Shower/Bathe:: 24 hours Diet:: As Tolerated Discharge Orders Discharge Orders: Discharge Order (Routine); Ordered 12/03/19 Ordered By: Jorje Segal DS: Diagnosis Discharge Diagnosis (1) Renal calculus, left: Status: Acute
--- NOTE | 2019-12-03 10:10 | DI.RAD_ITS ---
EXAM: XR RETROGRADE IN OR CLINICAL HISTORY: Kidney Stone Left Side. TECHNIQUE: Fluoroscopy was provided for the referring physician for guidance with performing injecti on procedure. COMPARISON: No exams were available for comparison FINDINGS: Please see procedure note for details. Fluoro Time: 38.7 seconds
[2019-12-03] MEDS: LORazepam 2 MG/ML VIAL 0.5 MG IVP ×2 (11:12→11:23)
[2019-12-03] MEDS: Phenazopyridine 200 MG TAB PO (12:10)
[2019-12-03] MEDS: Tamsulosin 0.4 MG CAPCR PO (12:10)
--- NOTE | 2019-12-04 06:32 | ROE_ITS ---
REPORT OF OPERATIVE PROCEDURE DATE OF SERVICE December 03, 2019 PREOPERATIVE DIAGNOSIS Left kidney stone. POSTOPERATIVE DIAGNOSIS Left kidney stone. PROCEDURES PERFORMED Cystoscopy, left retrograde pyelogram, left flexible ureteroscopy, holmium laser lithotripsy of left kidney stone, extraction of stone fragments. SURGEON Jorje Segal M.D. ANESTHESIA General. COMPLICATIONS None. ESTIMATED BLOOD LOSS Minimal. HISTORY This is a 39-year-old gentleman who has a long history of kidney stones. He has passed stones spontan eously, but has never required surgery for his stone disease. He has had intermittent left flank pain and was found to have a 10-mm stone in the left renal pelvis. He presents now for flexible ureterosc opy with Holmium laser lithotripsy of the stone. DESCRIPTION OF PROCEDURES: The patient was given preoperative IV antibiotics. After successful induction of general anesthesia, he was placed in the dorsal lithotomy position. His genitalia was prepped and draped. 2% Xylocaine jelly was then instilled into the urethra. A #22-Latvian rigid cystoscope was passed through the urethra into the bladder. The bladder was inspec rudy with a 30-degree lens. The pendulous, bulbous and membranous urethras all appeared normal with no strictures. The prostatic urethra showed no significant lateral lobe enlargement. The bladder neck was entered and the bladder mucosa was inspected. Both ureteral orifices appeared normal. No blood was seen coming from either side. The remainder of t he bladder was smooth walled with no papillary or nodular lesions. I initially attempted to pass a #6-Latvian access catheter directly into the left ureteral orifice, bu t I was not successful. I then passed a wire through the cystoscopy and maneuvered the wire into the ureteral orifice. The access catheter was then advanced over the wire. We removed the wire and injected Omnipaque through the access catheter under fluoroscopic guidance. T outlined the calices The orifice was cannulated with a #6-Latvian access catheter. A retrograde film was obtained by kena Gonzales through the access catheter under fluoroscopic guidance. The ureter appeared normal with no filling defects. No hydronephrosis was seen. There did however appear to be a filling defect in one of the lower pole calices calyces and renal pelvis. A filling d efect was identified in the renal pelvis. We then replaced the guidewire back through the access catheter, then removed the access catheter. We used a Dual lumen catheter to position a second wire. We chose one of the wires as a working wire an d the other as a safety wire. We then passed a ureteral access sheath over the working wire leaving the safety wire in place. We passed the flexible ureteroscope through the access sheath up to the renal pelvis. We were able to visualize a stone. We then treated the stone with a 272 Micron Holmium Laser fiber. We used a brendan g setting of a rate of 8 and a power setting of 200. As the stone decreased in size, we increased the power to 800 to fracture the stone into additional pieces. Once the stone particles appeared small enough, we passed a Zero-tip stone basket through the scope a nd grasped multiple stones. Each of the stones were extracted and will be sent to the lab for chemica l analysis. Repeat ureteroscopy did not identify any large stone fragment. We then injected Omnipaque into the renal pelvis and collecting system on the left. No extravasation of contrast was identified. The left kidney drained quite promptly, so we elected not to place a uret eral stent. All remaining wires and catheters were removed. The patient tolerated that procedure well with no co mplications. CC: Abhishek Rouse M.D. [facility] [place], [place]
[2019-12-09 13:09] LABS: Source: Left Kidney
== END 2019-12-03 12:53 | disposition home or self-care (01) ==
PROVIDERS: Visit Provider Urology
PROC: (CPT 52353; principal; 2019-12-03 09:00)
DX: N20.0 Calculus of kidney (principal); Z87.442 Personal history of urinary calculi
CPT/HCPCS: 52353; NC; 74420; 82365; J0744; J1100; J1885; J2001; J2060; J2250; J2405; J2704; Q9967

== ENCOUNTER 2021-07-03 15:18 | Outpatient (REF) | payer MEDICAID, SELFPAY ==
[2021-07-06 20:15] LABS: Gabapentin, Urine Negative
== END 2021-07-03 15:19 | disposition home or self-care (01) ==
LOC: NCHCN 15:18
PROVIDERS: PCP Family Medicine Adult Medicine; Visit Provider Family Medicine
DX: F19.10 Other psychoactive substance abuse, uncomplicated (principal)
CPT/HCPCS: 80307

== ENCOUNTER 2023-05-15 17:10 | Outpatient (REF) | payer MEDICARE, MEDICAID, SELFPAY ==
[2023-05-15 16:27] LABS: Abs Immature Grans 0.06 10^3/uL (0.0-0.06); Absolute Basophil Count 0.07 10^3/uL (0.0-0.2); Absolute Lymphocyte Count 2.23 10^3/uL (1.2-3.4); Absolute Monocyte Count 0.66 10^3/uL (0.1-0.8); Absolute Neutrophil Count 4.16 10^3/uL (1.2-6.7); Basophils % 0.9; Eosinophils % 2.7; HGB 16.3 g/dL (13.5-17.5); Immature Grans % 0.8; Lymphocytes % 30.2; MCH 29.2 pg (27.0-33.0); MCV 86 fL (80-95); MPV 9.5 fL (8.0-11.0); Monocytes % 8.9; Neutrophils % 56.5; Platelet Count 335 10^3/uL (130-400); RBC 5.58 10^6/uL (4.36-5.78); RDW 12.2 % (11.8-14.1); RDW-SD 38.5 fL; WBC 7.38 10^3/uL (4.4-10.8)
[2023-05-15 16:58] LABS: ALT 75 U/L (16-63); AST 44 U/L (15-37); Albumin 4.3 g/dL (3.4-5.0); Alkaline Phosphatase 100 U/L (46-116); Anion Gap 8.2 mmol/L (3-11); BUN 18 mg/dL (7-18); Bilirubin, Total 0.5 mg/dL (0.2-1.0); CO2 31.8 mmol/L (21.0-32.0); CREATININE 1.1 mg/dL (0.70-1.30); Calcium 10.1 mg/dL (8.5-10.1); Chloride 100 mmol/L (98-107); Estimated GFR 86.49 (mL/min/1.73m2); Glucose 100 mg/dL (74-106); Potassium 4.3 mmol/L (3.5-5.1); Sodium 140 mmol/L (136-145); TSH (W/Ref FT4) 2.42 uIU/mL (0.36-3.74); Total Protein 8.6 g/dL (6.4-8.2); Vitamin B12 924 pg/mL (193-986)
[2023-05-15 17:03] LABS: Folate > 20.0 ng/mL (8.6-20.0)
[2023-05-15 17:47] LABS: Hemoglobin A1C 5.4 % (<5.7)
== END 2023-05-15 17:11 | disposition home or self-care (01) ==
LOC: NCHCN 17:10
PROVIDERS: PCP Family Medicine Adult Medicine; Visit Provider Family Medicine
DX: R41.3 Other amnesia (principal); F19.10 Other psychoactive substance abuse, uncomplicated; F41.8 Other specified anxiety disorders; Z87.820 Personal history of traumatic brain injury; R79.89 Other specified abnormal findings of blood chemistry
CPT/HCPCS: 80053; 82607; 82746; 83036; 84443; 85025

== ENCOUNTER 2023-11-07 21:15 | Outpatient (REF) | payer MEDICARE, MEDICAID, SELFPAY ==
[2023-11-07 22:03] LABS: Bacteria Rare HPF (Negative); C & S Indicated? C&S Done As Ordered; Casts Negative LPF (Negative); Crystals Rare Calcium Oxalate HPF (Negative); Epithelial Cells Negative HPF (Negative); Mucus Negative (Negative); RBC 20-50 HPF (0-2); WBC Negative HPF (0-5)
== END 2023-11-07 21:16 | disposition home or self-care (01) ==
LOC: LBN 21:15
PROVIDERS: PCP Family Medicine Adult Medicine; Visit Provider Physician Assistant Medical
DX: R32 Unspecified urinary incontinence (principal); R82.89 Other abnormal findings on cytological and histological examination of urine
CPT/HCPCS: 81015; 87086

== ENCOUNTER → 2024-01-21 13:04 | Outpatient (BNVA) | payer MEDICARE, MEDICAID, SELFPAY | PROVIDERS: PCP Family Medicine Adult Medicine; Referring Provider Family Medicine Adult Medicine; Visit Provider Nurse Practitioner Gerontology | DX: R32 Unspecified urinary incontinence (principal); R31.21 Asymptomatic microscopic hematuria | CPT/HCPCS: 51798; 81003; 99205 ==

== ENCOUNTER 2024-01-31 01:19 | Outpatient (CLI) | payer MEDICARE, MEDICAID, SELFPAY ==
[2024-01-31 12:43] LABS: Abs Immature Grans 0.03 10^3/uL (0.0-0.06); Absolute Basophil Count 0.02 10^3/uL (0.0-0.2); Absolute Eosinophil Count 0.21 10^3/uL (0.0-0.7); Absolute Lymphocyte Count 1.59 10^3/uL (1.2-3.4); Absolute Monocyte Count 0.52 10^3/uL (0.1-0.8); Absolute Neutrophil Count 5.95 10^3/uL (1.2-6.7); Basophils % 0.2; Eosinophils % 2.5; HCT 46.3 % (40.0-50.0); HGB 15.9 g/dL (13.5-17.5); Immature Grans % 0.4; Lymphocytes % 19.1; MCH 28.9 pg (27.0-33.0); MCHC 34.3 % (32.0-36.0); MCV 84 fL (80-95); MPV 9.2 fL (8.0-11.0); Monocytes % 6.3; Neutrophils % 71.5; Platelet Count 284 10^3/uL (130-400); RDW 12.5 % (11.8-14.1); RDW-SD 38.3 fL; WBC 8.32 10^3/uL (4.4-10.8)
[2024-01-31 14:02] LABS: ALT 83 U/L (16-63); AST 52 U/L (15-37); Albumin 4.2 g/dL (3.4-5.0); Alkaline Phosphatase 97 U/L (46-116); BUN 15 mg/dL (7-18); Bilirubin, Total 0.6 mg/dL (0.2-1.0); CREATININE 1.2 mg/dL (0.70-1.30); Calcium 9.1 mg/dL (8.5-10.1); Chloride 100 mmol/L (98-107); Estimated GFR 77.43 (mL/min/1.73m2); Glucose 117 mg/dL (74-106); Potassium 3.8 mmol/L (3.5-5.1); Sodium 139 mmol/L (136-145); TSH (W/Ref FT4) 1.91 uIU/mL (0.36-3.74); Total Protein 8.4 g/dL (6.4-8.2)
[2024-02-07 15:34] LABS: Testosterone, Free 1.72 ng/dL (4.46-17.1); Testosterone, Total 53 ng/dL (240-950)
== END 2024-01-31 01:20 | disposition home or self-care (01) ==
LOC: LBO 01:19
PROVIDERS: PCP Family Medicine; Visit Provider Family Medicine
DX: F41.9 Anxiety disorder, unspecified (principal); R68.82 Decreased libido
CPT/HCPCS: 36415; 80053; 84402; 84403; 84443; 85025

== ENCOUNTER → 2024-02-12 02:42 | Outpatient (CLI) | payer MEDICARE, MEDICAID, SELFPAY ==
--- NOTE | 2024-02-12 07:00 | DI.CT_ITS ---
Exam(s) CT ABDOMEN PELVIS WO/W EXAM: CT ABDOMEN PELVIS WO/W CLINICAL HISTORY: hx of kidney stone,hematuria,former smoker,lt flank pain,urinary incontinen. TECHNIQUE: Imaging Protocol: Axial computed tomography images with coronal and sagittal reformatted images were created and reviewed. Images were performed from the lung bases through the ischial tuberosities before IV contrast and fol lowing IV contrast using a 70 second delay, followed by 7 minutes delayed images. CONTRAST MATERIAL: Intravenous: Omnipaque 350 Contrast volume:100 cc Oral: no COMPARISON: CT CT renal colic wo from 05/12/2019 FINDINGS: Exam limited by motion and body habitus. ABDOMEN: Lung Bases: Normal where visualized. Liver: Enlarged. Severe hepatic steatosis. No measurable mass. Gallbladder and biliary tract: No radiodense calculus or dilation. Pancreas: Normal density, no abnormal calcifications or inflammatory process. Spleen: Normal. Kidneys: Normal size, contour and axis. No radiodense stones or obstructive uropathy. No suspicious m asses seen. Small simple left renal cysts. No follow-up recommended. Adrenal glands: No masses seen. Lymph nodes: Within normal limits. Abdominal Aorta: Abdominal portion non-dilated. Soft tissues: Gynecomastia. Anterior abdominal wall: From view. PELVIS: Bladder: No gross wall thickening. No evidence of a mass.No evidence of calculi. Bowel: No obstruction or bowel wall thickening. Appendix normal. Moderate to increased quantity of s tool. Peritoneal cavity: No ascites, collection or mesenteric inflammatory response. Soft tissues: Bones: Unremarkable for age.. Reproductive organs: Unremarkable for age. Prostate normal in size.. IMPRESSION: No evidence of renal calculi, hydronephrosis or renal mass. The bladder and prostate appear normal. Enlarged fatty liver noted. RADIATION DOSE DELIVERED: 3,859.25mGy.cm Total DLP DATA REPOSITORY: All CT scans at this facility are submitted to the National Radiology Data Registry (NRDR) Dose Index Registry (DIR) with the [employer] ([employer]). RADIATION OPTIMIZATION: All CT scans at this facility use at least one of these dose optimization te chniques: automated exposure control; mA and/or kV adjustment per patient size (includes targeted exa ms where dose is matched to clinical indication); or iterative reconstruction.
[2024-02-12] MEDS: Normal Saline - Diluent 50 ML VIAL IJ (08:24)
[2024-02-12] MEDS: Omnipaque 350 MG/ML 100 ML BTL IJ (08:25)
[2024-02-12] MEDS: Normal Saline Flush 10 ML SYR IVP (08:41)
== END ==
PROVIDERS: PCP Family Medicine; Visit Provider Nurse Practitioner Gerontology
DX: R10.9 Unspecified abdominal pain
CPT/HCPCS: 74178; J3490

== ENCOUNTER → 2024-02-20 11:34 | Outpatient (BNVA) | payer MEDICARE, MEDICAID, SELFPAY | PROVIDERS: PCP Family Medicine; Referring Provider Family Medicine; Visit Provider Nurse Practitioner Gerontology | DX: R32 Unspecified urinary incontinence (principal) | CPT/HCPCS: 99213 ==

== ENCOUNTER 2024-07-30 10:27 | Emergency (ER) | payer MEDICARE, MEDICAID, SELFPAY ==
[2024-07-30 10:32] VITALS: BP 147/99; PULSE 124; RESP 20; TEMP 36; O2SAT 94
[2024-07-30] MEDS: Lidocaine/Epinephri/Tetracaine Topical Gel 3 ML (10:52)
--- NOTE | 2024-07-30 10:52 | ED.GENADUL_ITS ---
Discharge Plan Disposition Patient Disposition: Home Discharge Details Clinical Impression: Head injury, Laceration of thumb without complication Primary Care Provider: Curly Frey ED Provider: Loren Crawley Home Meds and New Rx's Prescriptions: No Action tamsulosin 0.4 mg capsule 0.8 mg PO QHS PRN (Reason: luts) Qty: 60 11RF ibuprofen 800 mg tablet 800 mg PO TID PRN (Reason: pain) Qty: 30 0RF Konsyl (sugar) 3.4 gram/12 gram powder 1 tbs PO DAILY multivitamin Capsule 1 cap PO DAILY naproxen 500 mg tablet 500 mg PO BID hydroxyzine HCl 50 mg tablet 50 mg PO DAILY docusate sodium 100 mg capsule 100 mg PO HS clonidine HCl 0.1 mg tablet 0.2 mg PO DAILY methadone 10 mg/mL syringe 130 mg PO DAILY Patient Comments: DOMENIC escitalopram oxalate 20 mg tablet 20 mg PO DAILY nortriptyline 50 mg capsule 50 mg PO DAILY acetaminophen [Tylenol Extra Strength] 500 MG tablet 2 tab PO PRN PRN Discharge Instructions Additional Instructions: Please call [facility] first thing in the morning to schedule suture removal in 7 to 10 days. Your tetanus was updated today. Keep your wound clean and dry. Wash daily antibacterial soap and water. Apply thin layer bacitracin. Cover with a Band-Aid and splint for the next couple of days to help keep the edges together. You may use Tylenol or ibuprofen as needed for headache. Return to emergency care if you develop new or worsening headache, vision changes, episodes of passing out, uncontrollable vomiting, signs of infection such as redness/swelling/pus drainage to your cuts, or if you are very worried and need to be rechecked again immediately HPI General Date/Time Provider Initiated Documentation: 07/30/24 10:37 . HPI Narrative: Willy is a 43-year-old male who presents to the emergency department today after fall. He reports that he slipped on a slipper on the stairs, causing him to trip down the stairs. He landed on rocks at the bottom of the stairs, hitting his head and cutting the base of his right thumb. Denies loss of consciousness, vision changes, nausea/vomiting, neck pain, back pain, other injuries. He is not on any anticoagulation. He has full painless range of motion to thumb, no distal numbness or tingling. Physical exam remarkable for small laceration to the right parietal area of scalp and 1 cm linear laceration to the base of the right thumb at the PIP. Full painless range of motion of thumb, sensation intact. Unable to visualize tendon. PERRL, EOMs intact. Full painless range of motion neck, no C-spine tenderness/step-off/deformity. No red flags concerning for serious head injury, CT not indicated based on Nexus criteria. Thumb laceration reassuring, as patient has full range of motion, no concern at this time for tendon injury or serious vascular injury. No bony involvement suspected based on location. Scalp with was extensively cleansed with water by nurse, no bleeding to shallow 0.5 cm laceration; repair not indicated. Thumb laceration was irrigated extensively, no foreign bodies visualized. Local infiltration with 1 cc 1% lidocaine with good effect. Three 5-0 Ethilon sutures placed with good approximation of edges. RN to apply bacitracin, nonstick dressing, and splint to immobilize joint during healing. Reviewed discharge instructions with patient, including wound care and red flags indicate need for return to emergency care. Tdap updated today, as patient was not sure of his last booster. Related Data Home Medications ?Medication ?Instructions ?Recorded ?Confirmed acetaminophen 500 mg tablet 2 tab PO PRN PRN 09/24/13 07/30/24 (Tylenol Extra Strength) docusate sodium 100 mg capsule 100 mg PO HS 08/12/19 07/30/24 hydroxyzine HCl 50 mg tablet 50 mg PO DAILY 08/12/19 07/30/24 multivitamin 1 cap PO DAILY 08/12/19 07/30/24 naproxen 500 mg tablet 500 mg PO BID 08/12/19 07/30/24 psyllium husk (with sugar) 3.4 1 tbs PO DAILY 08/12/19 07/30/24 gram/12 gram oral powder (Konsyl (sugar)) clonidine HCl 0.1 mg tablet 0.2 mg PO DAILY 11/11/23 07/30/24 escitalopram oxalate 20 mg tablet 20 mg PO DAILY 11/11/23 methadone 10 mg/mL intravenous 130 mg PO DAILY 11/11/23 07/30/24 syringe nortriptyline 50 mg capsule 50 mg PO DAILY 11/11/23 07/30/24 ibuprofen 800 mg tablet 800 mg PO TID PRN pain #30 tabs 01/21/24 07/30/24 tamsulosin 0.4 mg capsule 0.8 mg (2 x 0.4 mg) PO QHS PRN 01/21/24 07/30/24 luts #60 caps Previous Rx's ?Medication ?Instructions ?Recorded ibuprofen 800 mg tablet 800 mg PO TID PRN pain #30 tabs 01/21/24 tamsulosin 0.4 mg capsule 0.8 mg (2 x 0.4 mg) PO QHS PRN 01/21/24 luts #60 caps Allergies Allergy/AdvReac Type Severity Reaction Status Date / Time codeine Allergy Intermediate Hives Unverified 07/30/24 10:37 amoxicillin AdvReac Intermediate Nausea Unverified 07/30/24 10:37 Penicillins AdvReac Mild Nausea Unverified 07/30/24 10:37 General Stated Complaint: Laceration POOL: 3 Review of Systems Narrative: see HPI Exam Const General: cooperative, healthy appearing, comfortable, no acute distress, well developed and well groomed Nutritional Appearance: average body habitus Orientation: alert and oriented x3 HENMT Head: normal to inspection, no palpable skull fracture, normocephalic and no hematomas Ears: hearing grossly normal bilaterally General nose exam: external nose normal Face and sinus: normal facial exam Mouth: oral mucosae normal and tongue normal Eyes Pupils: PERRL EOM: EOM intact bilaterally Neck Neck: normal visual inspection and full ROM Resp Effort & Inspection: normal respiratory effort and able to speak in complete sentences Back/Spine/Pelvis Cervical Spine: normal cervical lordosis and cervical ROM normal Skin Trauma: laceration (R thumb) Neuro General: patient alert Cranial Nerves: CN's II-XI intact bilaterally Cognition: normal cognition Speech: speech normal Gait: normal gait Extrem Right upper extremity: hand Details: normal capillary refill, neuromotor exam normal, normal ROM of fingers, no swelling and laceration (R thumb) Hand/finger images: 2 1. 1 cm linear laceration, edges well approximated Course Vital Signs Vital signs: Vital Signs Temperature 36.0 C L 07/30/24 10:32 Pulse 124 H 07/30/24 10:32 Respiratory Rate 20 07/30/24 10:32 Blood Pressure 147/99 H 07/30/24 10:32 Pulse Oximetry 94 07/30/24 10:32 Temperature 36.0 C L 07/30/24 10:32 Temperature Source Temporal Artery Scan 07/30/24 10:32 Pulse 124 H 07/30/24 10:32 Respiratory Rate 20 07/30/24 10:32 Respiratory Effort Normal 07/30/24 10:43 Blood Pressure 147/99 H 07/30/24 10:32 Pulse Oximetry 94 07/30/24 10:32 Oxygen Delivery Method Room Air 07/30/24 10:32 Oxygen Flow Rate 0 07/30/24 10:32 Pain Level 0 07/30/24 10:32 Procedures Laceration Laceration 1: Site: hand Side (If applicable): right Size (cm): 1 Description: linear Depth: simple, single layer Local anesthetic: Lidocaine 1% Amount of anesthesia used (mL): 1 Pre-repair: wound explored Skin layer closed with: nylon Size (cm): 5-0 Number of sutures: 3 Technique: simple, interrupted Medical Decision Making Quality:SDOH Health Related Social Needs: 2 No Data to Display PFSH All Active Problems Laceration of thumb without complication (Acute) Head injury (Acute) Urinary incontinence (Acute) Amnesia (Acute) Hypertrophy of breast (Acute) Abnormal vision (Acute) Psychoactive substance abuse (Acute) Renal calculus, left (Acute) Acute kidney injury (Acute 11/23/13) Hyperkalemia (Acute 11/23/13) Mood disorder (Chronic) Cough (Acute) Acute febrile illness (Acute) Proteinuria (Acute) Asymptomatic microscopic hematuria (Acute) History of intravenous drug abuse (Acute) Medical History Hx of hepatitis C per corrections documentation pt. 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
[2024-07-30] MEDS: Lidocaine 1% Multi-Dose 50 ML VIAL IJ (10:54)
[2024-07-30] MEDS: Bacitracin 1 PACKET (11:40)
== END 2024-07-30 11:42 | disposition home or self-care (01) ==
PROVIDERS: Emergency Provider Nurse Practitioner Family; PCP Family Medicine
DX: S61.011A Laceration without foreign body of right thumb without damage to nail, initial encounter (principal); S01.81XA Laceration without foreign body of other part of head, initial encounter; W10.8XXA Fall (on) (from) other stairs and steps, initial encounter; Z23 Encounter for immunization
CPT/HCPCS: 12001; 90471; 90715; J2003

== ENCOUNTER 2025-03-17 19:16 | Outpatient (REF) | payer MEDICARE, MEDICAID, SELFPAY ==
[2025-03-17 21:17] LABS: Abs Immature Grans 0.05 10^3/uL (0.0-0.06); Absolute Basophil Count 0.08 10^3/uL (0.0-0.2); Absolute Eosinophil Count 0.14 10^3/uL (0.0-0.7); Absolute Monocyte Count 0.69 10^3/uL (0.1-0.8); Absolute Neutrophil Count 3.14 10^3/uL (1.2-6.7); Basophils % 1.3 %; Eosinophils % 2.3 %; HCT 46.9 % (40.0-50.0); HGB 15.9 g/dL (13.5-17.5); Immature Grans % 0.8 %; Lymphocytes % 33.9 %; MCHC 33.9 % (32.0-36.0); MCV 85 fL (80-95); MPV 10.5 fL (8.0-11.0); Monocytes % 11.1 %; Neutrophils % 50.6 %; Platelet Count 278 10^3/uL (130-400); RBC 5.49 10^6/uL (4.36-5.78); RDW 12.1 % (11.8-14.1); RDW-SD 37.3 fL
[2025-03-17 21:41] LABS: Anion Gap 5.6 mmol/L (3-11); BUN 11 mg/dL (7-18); CO2 33.4 mmol/L (21.0-32.0); CREATININE 0.8 mg/dL (0.70-1.30); Calcium 9.3 mg/dL (8.5-10.1); Chloride 102 mmol/L (98-107); Estimated GFR 112.61 (mL/min/1.73m2); Glucose 125 mg/dL (74-106); Potassium 4.2 mmol/L (3.5-5.1); Sodium 141 mmol/L (136-145); TSH (W/Ref FT4) 2.42 uIU/mL (0.36-3.74)
[2025-03-17 21:48] LABS: Hemoglobin A1C 5.7 % (<5.7)
== END 2025-03-17 19:17 | disposition home or self-care (01) ==
LOC: LBN 19:16
PROVIDERS: PCP Family Medicine; Visit Provider Physician Assistant Medical
DX: G47.19 Other hypersomnia (principal)
CPT/HCPCS: 80048; 83036; 84443; 85025

== ENCOUNTER 2025-06-20 08:48 | Emergency (ER) | payer MEDICARE, MEDICAID, SELFPAY ==
[2025-06-20 09:16] VITALS: BP 150/103; PULSE 101; RESP 18; TEMP 36.7; O2SAT 95
[2025-06-20 09:25] VITALS: BP 150/103; PULSE 101; RESP 18; TEMP 36.7; O2SAT 95
--- NOTE | 2025-06-20 09:29 | W.ED.GENAD ---
Discharge Plan Disposition Patient Disposition: Home Condition: Stable Discharge Details Clinical Impression: Strep pharyngitis Primary Care Provider: Curly Frey ED Provider: Fabrice Galvan Home Meds and New Rx's Prescriptions: New cefpodoxime 200 mg tablet 200 mg PO BID 7 Days Qty: 14 0RF Rx Instructions: must administer with a meal/food azithromycin 250 mg tablet See Rx Instructions .ROUTE .COMPLEX Qty: 6 0RF Rx Instructions: For 250 mg dose pack: take 500 mg today (day 1), then 250 mg for 4 days (days 2-5) Continued tamsulosin 0.4 mg capsule 0.8 mg PO QHS PRN (Reason: luts) Qty: 60 11RF ibuprofen 800 mg tablet 800 mg PO TID PRN (Reason: pain) Qty: 30 0RF Konsyl (sugar) 3.4 gram/12 gram powder 1 tbs PO DAILY multivitamin Capsule 1 cap PO DAILY naproxen 500 mg tablet 500 mg PO BID hydroxyzine HCl 50 mg tablet 50 mg PO DAILY docusate sodium 100 mg capsule 100 mg PO HS clonidine HCl 0.1 mg tablet 0.1 mg PO BID methadone 10 mg/mL syringe 130 mg PO DAILY Patient Comments: BAART escitalopram oxalate 20 mg tablet 20 mg PO DAILY nortriptyline 50 mg capsule 50 mg PO DAILY acetaminophen [Tylenol Extra Strength] 500 MG tablet 2 tab PO PRN PRN omeprazole 40 mg capsule,delayed release(DR/EC) 40 mg PO DAILY amitriptyline 50 mg tablet 50 mg PO QHS venlafaxine 150 mg capsule,extended release 24hr 150 mg PO DAILY venlafaxine 37.5 mg capsule,extended release 24hr 37.5 mg PO DAILY clonidine HCl 0.3 mg tablet 0.3 mg PO DAILY simethicone [Gas Relief (simethicone)] 180 mg capsule 180 mg PO BID PRN gabapentin 300 mg capsule 300 mg PO TID oxybutynin chloride 5 mg tablet 5 mg PO QID Discharge Instructions Instructions: Azithromycin (Systemic), Cefpodoxime, Strep Throat ED Additional Instructions: You were seen in the emergency department for your continued sore throat and cough, your rapid strep is still positive indicating likely treatment failure for strep 1 month ago. We are going to start you on 2 different antibiotics which will cover strep pharyngitis as well as any actual bronchitis. Please pick these up at your pharmacy and take them as directed. Please use therapeutic dosing of Tylenol (acetamenophen) & Advil (ibuprofen) in an alternating fashion as follows: Take 1000mg of Tylenol every 6 hours without missing doses- that is 4 times per day. [place] in between the Tylenol dosings, take 400-600mg of Advil also on a 6 hour schedule, that is also 4 times per day. The daily maximum dosing of Tylenol is 4000mg, and the daily maximum dosing of Advil is 2400mg. This is safe to do for weeks. Please note that some common cold medications & prescription pain medications may contain acetamenophen and you need to read OTC drug labels and factor that in to maximum daily dosings. Perform warm salt water gargles 3 times per day. Please return to the emergency department for any severe increase in pain despite treatment, inability to swallow, vocal changes, inability to open or close your jaw or respiratory distress. Referrals: Curly Frey MD [Primary Care Provider, Medicine] HPI General Date/Time Provider Initiated Documentation: 06/20/25 09:20. HPI Narrative: 44 year-old male presents to ED today by POV/ambulating with a chief complaint of sore throat, cough with productive brown sputum, intermittent fevers with onset after getting strep about a month ago- then getting Covid. Quality described as very sore throat especially in the mornings, cough with brown sputum, no radiation to chest pain, shortness of breath, dizziness, nausea/vomiting, high fevers, inability to tolerate PO intake. Severity is described as moderate. Palliating factors include OTC analgesics without relief. Provoking factors include nothing specific. Patient not anticoagulated. Related Data Home Medications ?Medication ?Instructions ?Recorded ?Confirmed acetaminophen 500 mg tablet 2 tab PO PRN PRN 09/24/13 06/20/25 (Tylenol Extra Strength) docusate sodium 100 mg capsule 100 mg PO HS 08/12/19 06/20/25 hydroxyzine HCl 50 mg tablet 50 mg PO DAILY 08/12/19 06/20/25 multivitamin 1 cap PO DAILY 08/12/19 06/20/25 naproxen 500 mg tablet 500 mg PO BID 08/12/19 06/20/25 psyllium husk (with sugar) 3.4 1 tbs PO DAILY 08/12/19 06/20/25 gram/12 gram oral powder (Konsyl (sugar)) clonidine HCl 0.1 mg tablet 0.1 mg PO BID 11/11/23 06/20/25 escitalopram oxalate 20 mg tablet 20 mg PO DAILY 11/11/23 06/20/25 methadone 10 mg/mL intravenous 130 mg PO DAILY 11/11/23 06/20/25 syringe nortriptyline 50 mg capsule 50 mg PO DAILY 11/11/23 06/20/25 ibuprofen 800 mg tablet 800 mg PO TID PRN pain #30 tabs 01/21/24 06/20/25 tamsulosin 0.4 mg capsule 0.8 mg (2 x 0.4 mg) PO QHS PRN 01/21/24 06/20/25 luts #60 caps amitriptyline 50 mg tablet 50 mg PO QHS 06/20/25 06/20/25 azithromycin 250 mg tablet See Rx Instructions PO .COMPLEX #6 06/20/25 tabs cefpodoxime 200 mg tablet 200 mg PO BID 7 days #14 tabs 06/20/25 clonidine HCl 0.3 mg tablet 0.3 mg PO DAILY 06/20/25 06/20/25 gabapentin 300 mg capsule 300 mg PO TID 06/20/25 06/20/25 omeprazole 40 mg capsule,delayed 40 mg PO DAILY 06/20/25 06/20/25 release oxybutynin chloride 5 mg tablet 5 mg PO QID 06/20/25 06/20/25 simethicone 180 mg capsule (Gas 180 mg PO BID PRN 06/20/25 06/20/25 Relief (simethicone)) venlafaxine 150 mg 150 mg PO DAILY 06/20/25 06/20/25 capsule,extended release 24 hr venlafaxine 37.5 mg 37.5 mg PO DAILY 06/20/25 06/20/25 capsule,extended release 24 hr Previous Rx's ?Medication ?Instructions ?Recorded ibuprofen 800 mg tablet 800 mg PO TID PRN pain #30 tabs 01/21/24 tamsulosin 0.4 mg capsule 0.8 mg (2 x 0.4 mg) PO QHS PRN 01/21/24 luts #60 caps azithromycin 250 mg tablet See Rx Instructions PO .COMPLEX #6 06/20/25 tabs cefpodoxime 200 mg tablet 200 mg PO BID 7 days #14 tabs 06/20/25 Allergies Allergy/AdvReac Type Severity Reaction Status Date / Time codeine Allergy Intermediate Hives Verified 06/20/25 09:18 amoxicillin AdvReac Intermediate Nausea Verified 06/20/25 09:18 Penicillins AdvReac Mild Nausea Verified 06/20/25 09:18 General Stated Complaint: GenMedical POOL: 3 Review of Systems All systems reviewed & are unremarkable except as noted in HPI and below Exam Narrative Exam Narrative: GENERAL APPEARANCE: Well-nourished, non-toxic, awake and alert, atraumatic, no acute distress. SKIN: Warm, pink, dry, intact, without rashes/lesions/ulcerations. HEAD: Normocephalic, atraumatic, normal hair distribution for gender/age. EYES: Normal conjunctiva, no exudates on lids/lashes. ENT: Nares patent, no circumoral cyanosis, no facial swelling, erythema to posterior oropharynx without exudate, uvula midline, no tonsillar shift, no vocal changes, no trismus NECK: Supple, trachea midline, painless cervical ROM. LUNGS/CHEST: Lungs CTA bilaterally- no rhonchi/rales/wheezes diffusely, non-labored respirations, normal A/P diameter, symmetrical expansion, no chest wall deformity HEART (CV/PV): Regular rate and rhythm without murmur, no peripheral edema, no JVD. ABDOMEN: Soft, non-distended, no guarding. MSK: Normal ROM, no swelling/deformity to bilateral UEs or LEs, moving all extremities without weakness, no cyanosis, spine midline without tenderness, normal curvature. NEURO: Mental Status AAOx4 - alert to person, place, time, events No facial droop, no forehead involvement. Motor: No focal weakness - strength 5/5 in bilateral UEs and LEs, proximal and distal, symmetric. Sensory: sensation intact to light touch globally. Gait normal: patient ambulated without ataxia into ED room. PSYCH: euthymic, cooperative, pleasant, appropriate speech Course Vital Signs Vital signs: Vital Signs Temperature 36.7 C 06/20/25 09:16 Pulse 101 H 06/20/25 09:16 Respiratory Rate 18 06/20/25 09:16 Blood Pressure 150/103 H 06/20/25 09:16 Pulse Oximetry 95 06/20/25 09:16 Temperature 36.7 C 06/20/25 09:25 Temperature Source Oral 06/20/25 09:25 Pulse 101 H 06/20/25 09:25 Respiratory Rate 18 06/20/25 09:25 Respiratory Effort Normal, Non-Labored 06/20/25 09:25 Respiratory Depth Normal 06/20/25 09:25 Respiratory Pattern Normal 06/20/25 09:25 Blood Pressure 150/103 H 06/20/25 09:25 Blood Pressure Position Sitting 06/20/25 09:25 Pulse Oximetry 95 06/20/25 09:25 Oxygen Delivery Method Room Air 06/20/25 09:25 Oxygen Flow Rate 0 06/20/25 09:25 Medical Decision Making This dictation utilizes [id number] dictation software and may contain unedited grammatical errors. 44 year-old male presents to ED today by POV/ambulating with a chief complaint of sore throat, cough with productive brown sputum, intermittent fevers with onset after getting strep about a month ago- then getting Covid. Quality described as very sore throat especially in the mornings, cough with brown sputum, no radiation to chest pain, shortness of breath, dizziness, nausea/vomiting, high fevers, inability to tolerate PO intake. Severity is described as moderate. Palliating factors include OTC analgesics without relief. Provoking factors include nothing specific. Patients' medical history: History of substance abuse disorder, hepatitis C. Family and social history: Daily methadone use, denies IVDU. Pertinent exam findings / vital signs include erythematous posterior oropharynx without exudate, uvula midline, no tonsillar swelling, no vocal changes no trismus, benign cardiopulmonary exam, nontoxic and afebrile. Differential / pathologies of concern include strep throat, pneumonia, viral syndrome. Diagnostic studies of: - Rapid strep, x-ray chest. - Rapid strep positive - Chest x-ray without pneumonia Interventions of: -Treating with 3rd gen cephalosporin due to PCN allergy and treatment failure- and azithromycin, as he may have an element of bacterial bronchitis from treatment failure for strep one month ago. ED Course/Assessment/Plan: 44-year-old male presents with sore throat, cough with productive sputum after getting strep throat 1 month ago as well as COVID, he has never fully recovered and his rapid strep is positive, I do not see any overt pneumonia on his chest x-ray but he may have some bacterial bronchitis especially in the right lung. I plan to treat him with cephalosporin and azithromycin due to his treatment failure, strict return criteria for any severe acute worsening despite treatment vocal changes, trismus, shortness of breath or respiratory distress. Findings not consistent with deep space infection, hypoxic respiratory failure, overt pneumonia. Disposition of Strep Pharyngitis. Patient verbalized understanding of the plan and return to ED criteria and engaged in shared decision making. Medical Records Medical records reviewed: Yes I reviewed the patient's medical records. Imaging Data Radiologic Study: Attestation: I personally reviewed and interpreted this imaging study as follows: Imaging: X-Ray Lab Data Lab results reviewed: Yes I reviewed the patient's lab results. Lab results narrative: Rapid Strep Positive PFSH All Active Problems Strep pharyngitis (Acute) Urinary incontinence (Acute) Amnesia (Acute) Hypertrophy of breast (Acute) Abnormal vision (Acute) Psychoactive substance abuse (Acute) Renal calculus, left (Acute) Acute kidney injury (Acute 11/23/13) Hyperkalemia (Acute 11/23/13) Mood disorder (Chronic) Cough (Acute) Acute febrile illness (Acute) Proteinuria (Acute) Asymptomatic microscopic hematuria (Acute) History of intravenous drug abuse (Acute) Medical History Hx of hepatitis C per corrections documentation pt. 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
--- NOTE | 2025-06-20 09:30 | DI.RAD_ITS ---
Exam(s) XR CHEST 2V PA LATERAL EXAM: XR CHEST 2V PA LATERAL CLINICAL HISTORY: cough. TECHNIQUE: 2D digital imaging was performed. COMPARISON: No exams were available for comparison FINDINGS: 2 views: Heart size is normal. The mediastinum is not widened. There is patchy infiltrate throughout the right lung field, most prominent in the upper lobe region. No pleural effusions. Left lung appears clear. No pulmonary edema. IMPRESSION: Patchy infiltrate throughout the right lung. No obvious pleural effusions. Preliminary virtual Radiology report was reviewed DATA REPOSITORY: RADIATION DOSE DELIVERED:
[2025-06-20 10:24] VITALS: BP 141/94; PULSE 94; RESP 18; O2SAT 96
--- NOTE | 2025-06-20 10:47 | DI.VRAD_ITS ---
PROCEDURE INFORMATION: Exam: XR Chest Exam date and time: 06/20/2025 9:50 AM Age: 44 years old Clinical indication: Other: Cough TECHNIQUE: Imaging protocol: Radiologic exam of the chest. Views: 2 views. COMPARISON: CT ABDOMEN PELVIS WO/W 02/12/2024 8:36 AM FINDINGS: Lungs: Patchy opacities in the right upper lobe and both bases may represent multifocal pneumonia.. Pleural spaces: Unremarkable. No pleural effusion. No pneumothorax. Heart/Mediastinum: Unremarkable. No cardiomegaly. Bones/joints: Unremarkable. IMPRESSION: Patchy opacities in the right upper lobe and both bases may represent multifocal pneumonia.. Dictated and Authenticated by: Roland Rainey MD. Orderin oCle Avina MD
== END 2025-06-20 10:25 | disposition home or self-care (01) ==
PROVIDERS: Emergency Provider Physician Assistant; PCP Family Medicine
DX: J02.0 Streptococcal pharyngitis (principal); J18.9 Pneumonia, unspecified organism; Z87.891 Personal history of nicotine dependence
CPT/HCPCS: 99284; 71046

== ENCOUNTER → 2025-09-08 01:23 | Outpatient (CLI) | payer MEDICARE, MEDICAID, SELFPAY ==
--- NOTE | 2025-09-08 | DI.RAD_ITS ---
Exam(s) XR CHEST 2V PA LATERAL EXAM: XR CHEST 2V PA LATERAL CLINICAL HISTORY: SHORTNESS OF BREATH, R06.02 TECHNIQUE: 2D digital imaging was performed of the chest. Two images were obtained. PA and lateral views were obtained. COMPARISON: CR CHEST 2 VIEWS PA,LAT from 09/25/2016 CR,XR XR CHEST 2V PA LATERAL from 06/20/2025 FINDINGS: MEDIASTINUM: Normal. HEART: Normal. PULMONARY VASCULATURE: Normal. LUNGS: Clear. PLEURAL SPACE: No pleural effusion or pneumothorax. BONE:Within normal limits for the patient's age. OTHER FINDINGS:Normal. IMPRESSION: No acute pulmonary findings. DATA REPOSITORY: RADIATION DOSE DELIVERED:
== END ==
LOC: DI 01:23
PROVIDERS: PCP Family Medicine; Visit Provider Nurse Practitioner Family
DX: R06.02 Shortness of breath (principal)
CPT/HCPCS: 71046